=== PATIENT | female | born 1990 | race Two or more races ===

== ENCOUNTER 2017-03-01 00:41 | Emergency (ER) | payer MEDICAID ==
[2017-03-01 01:46] VITALS: BP 105/61
== END 2017-03-01 01:46 | disposition left against medical advice (07) ==
LOC: ER 00:41
DX: Z53.21 Procedure and treatment not carried out due to patient leaving prior to being seen by health care provider (principal)

== ENCOUNTER 2017-10-24 11:00 | Inpatient (IN) | payer SELFPAY ==
--- NOTE | 2017-10-24 11:25 | ER Document Report ---
ED Psych Disorder / Suicide - General Stated Complaint: IVC W/PAPERS Time Seen by Provider: 10/24/17 11:18 Information source: Patient Notes: 27-year-old female with self disclose history of bipolar disorder and possibly ulcerative colitis who presents today after being released from [facility] today with IVC paperwork secondary to not eating for week. Patient is on no medications. Patient supposedly states that she has not eaten or drank for week because of her ulcerative colitis. She states she was told around 2 years ago that she had this diagnosis but was told that she needed no medications. She did not follow-up. Patient states she also was told that she has bipolar disorder and was supposed to be on medications but has not followed up. Patient states she is nauseous but denies actually any abdominal pain. She denies any vomiting or diarrhea. She denies any fevers or dysuria. Patient states she has a history of cutting in the past. TRAVEL OUTSIDE OF THE [place] IN LAST 30 DAYS: No - HPI Patient complains to provider of: Other - See above Quality of pain: Other - See above Severity: Mild Pain Level: Denies Suicide Risk Factors: Other - See above Normal mood: No Associated symptoms: Tearful, Other - Flat affect - Related Data Allergies/Adverse Reactions: No Known Drug Allergies Allergy (Verified 10/24/17 11:59) Past Medical History - General Information source: Patient - Social History Smoking Status: Unknown if Ever Smoked Cigarette use (# per day): No Chew tobacco use (# tins/day): No Smoking Education Provided: No Frequency of alcohol use: None Family History: Arthritis, CAD, Hyperlipidemia, Hypertension, Malignancy, Thyroid Disfunction - Past Medical History Cardiac Medical History: Denies: Hx Coronary Artery Disease, Hx Heart Attack, Hx Hypertension Pulmonary Medical History: Denies: Hx Asthma, Hx Bronchitis, Hx COPD, Hx Pneumonia Neurological Medical History: Reports: Hx Migraine. Denies: Hx Cerebrovascular Accident, Hx Seizures GI Medical History: Reports: Hx Crohn's Disease - Not sure if it's Crohn's or ulcerative colitis, Hx Ulcerative Colitis Musculoskeltal Medical History: Denies Hx Arthritis, Reports Hx Musculoskeletal Trauma - Immunizations Immunizations up to date: Yes Hx Diphtheria, Pertussis, Tetanus Vaccination: Yes Review of Systems - Review of Systems Constitutional: denies: Fever EENT: denies: Eye discharge, Nose discharge Cardiovascular: denies: Chest pain, Palpitations Respiratory: denies: Short of breath Gastrointestinal: denies: Vomiting Genitourinary: denies: Dysuria Musculoskeletal: denies: Leg swelling Skin: Other - no hives. denies: Rash Neurological/Psychological: Other - no slurred speech -: Yes All other systems reviewed and negative Physical Exam - Vital signs Vitals: Temp Pulse Resp BP Pulse Ox 97.7 F 105 H 12 113/79 98 10/24/17 11:35 10/24/17 11:35 10/24/17 11:35 10/24/17 11:35 10/24/17 11:35 Interpretation: Normal Notes: Reviewed vital signs and nursing note as charted by RN. CONSTITUTIONAL: Alert and oriented and responds appropriately to questions. Thin but not cachectic HEAD: Normocephalic; atraumatic EYES: Sclerae non-icteric ENT: Normal nose; no rhinorrhea; moist mucous membranes NECK: Supple without meningismus; non-tender CARD: Regular rate and rhythm; no murmurs RESP: Normal chest excursion without splinting or tachypnea; breath sounds clear and equal bilaterally ABD/GI: Normal bowel sounds; non-distended; soft, non-tender BACK: The back appears normal and is non-tender to palpation EXT: Normal ROM in all joints; non-tender to palpation; no edema SKIN: No acute lesions noted NEURO: Moves all extremities equally; Motor and sensory function intact PSYCH: Tearful with flat affect Course - Re-evaluation Re-evalutation: 10/24/17 11:24 Given the history, physical, psychiatry history, we will obtain basic labs, psychiatry profile, liver panel and lipase, and reassess the abdomen. Patient currently has no tenderness to deep palpation in all 4 quadrants of the abdomen. The patient has had no fevers, vomiting, or diarrhea. 10/24/17 11:28 Heart rate 98, normal sinus rhythm, normal axis, no obvious ST elevation or depression 10/24/17 14:10 Labs as recorded. Large ketones in the urine. Second liter fluid has been given. Liver panel and lipase is recorded. Normal white blood cell count. Patient still has no tenderness to deep palpation of all 4 quadrants of the abdomen. 10/24/17 18:02 Pt still is refusing to eat. I have provided fluids. Psychology team is seeing evaluating the patient. Patient will not be rescinded from IVC paperwork until at least the patient is able to eat. I have provided megace. Pt still has no ttp of the abdomen. - Vital Signs Vital signs: Temp Pulse Resp BP Pulse Ox 97.7 F 105 H 12 113/79 98 10/24/17 11:35 10/24/17 11:35 10/24/17 11:35 10/24/17 11:35 10/24/17 11:35 - Laboratory Result Diagrams: 10/24/17 11:37 10/24/17 11:37 Laboratory results interpreted by me: 10/24/17 10/24/17 10/24/17 11:37 11:37 12:12 Plt Count 593 H Lymphocytes % 12.2 L Monocytes % 13.8 H Eosinophils % 10.6 H Absolute Eosinophils 1.1 H Carbon Dioxide 16 L Anion Gap 21 H BUN 5 L Calcium 10.5 H Urine Protein 100 H Urine Ketones 80 H Urine Blood SMALL H Urine Bilirubin SMALL H Urine Urobilinogen 2.0 H Salicylates < 1.0 L Acetaminophen < 10 L Discharge - Discharge Clinical Impression: Eating disorder Major depression Qualifiers: Major depression recurrence: single episode Active/Remission status: currently active Major depression episode severity: severe Psychotic features: without psychotic features Qualified Code(s): F32.2 - Major depressive disorder, single episode, severe without psychotic features Condition: Fair Disposition: PSYCH HOSP/UNIT
[2017-10-24] MEDS ORDERED: NORMAL SALINE 1000 ML 1,000 ML IV ONE ×2 (11:29→14:09)
[2017-10-24 11:59] LABS: ABSOLUTE EOSINOPHILS # (AUTO) 1.1 10^3/uL (0.0-0.6); ABSOLUTE LYMPHOCYTES (AUTO) 1.2 10^3/uL (0.5-4.7); ABSOLUTE MONOCYTES (AUTO) 1.4 10^3/uL (0.1-1.4); ABSOLUTE NEUT (AUTO) 6.4 10^3/uL (1.7-8.2); BASOPHILS % (AUTO) 0.2 % (0-2); EOSINOPHILS % (AUTO) 10.6 % (0-6); HEMATOCRIT 39.6 % (36.0-47.0); HEMOGLOBIN 13.1 g/dL (12.0-15.5); LYMPHOCYTES % (AUTO) 12.2 % (13-45); MEAN CORPUSCULAR HEMOGLOBIN 29.1 pg (27.0-33.4); MEAN CORPUSCULAR HGB CONC 33.2 g/dL (32.0-36.0); MEAN CORPUSCULAR VOLUME 88 fl (80-97); MONOCYTES % (AUTO) 13.8 % (3-13); PLATELET COUNT 593 10^3/uL (150-450); RED BLOOD COUNT 4.52 10^6/uL (3.72-5.28); RED CELL DISTRIBUTION WIDTH 13.6 % (11.5-14.0); SEGMENTED NEUTROPHILS % (AUTO) 63.2 % (42-78); TOTAL CELLS COUNTED % (AUTO) 100 %; WHITE BLOOD COUNT 10.2 10^3/uL (4.0-10.5)
[2017-10-24 12:18] LABS: ALANINE AMINOTRANSFERASE 29 U/L (9-52); ALBUMIN 4.6 g/dL (3.5-5.0); ALKALINE PHOSPHATASE 82 U/L (38-126); ASPARTATE AMINO TRANSFERASE 15 U/L (14-36); BILIRUBIN,DIRECT 0.2 mg/dL (0.0-0.4); BILIRUBIN,TOTAL 0.4 mg/dL (0.2-1.3); BLOOD UREA NITROGEN 5 mg/dL (7-20); CALCIUM 10.5 mg/dL (8.4-10.2); CARBON DIOXIDE 16 mmol/L (22-30); CHLORIDE 105 mmol/L (98-107); GLUCOSE 84 mg/dL (75-110); LIPASE 41.8 U/L (23-300); POTASSIUM 4.4 mmol/L (3.6-5.0); SODIUM 142.4 mmol/L (137-145); TOTAL PROTEIN 7.7 g/dL (6.3-8.2)
[2017-10-24 12:19] LABS: ACETAMINOPHEN < 10 ug/mL (10-30); ALCOHOL < 10 mg/dL (NONE DETECTED); SALICYLATE < 1.0 mg/dL (2.0-20.0)
[2017-10-24 12:20] LABS: ANION GAP 21 (5-19)
[2017-10-24 12:32] LABS: APPEARANCE,URINE SLIGHTLY-CLOUDY; BILIRUBIN,URINE SMALL (NEGATIVE); COLOR,URINE YELLOW; GLUCOSE, URINE NEGATIVE (NEGATIVE); KETONES,URINE 80 mg/dL (NEGATIVE); LEUKOCYTE ESTERASE,URINE NEGATIVE (NEGATIVE); NITRITE,URINE NEGATIVE (NEGATIVE); PROTEIN,URINE 100 mg/dL (NEGATIVE); URINE SPECIFIC GRAVITY 1.031
[2017-10-24 12:45] LABS: URINE AMPHETAMINES SCREEN NEGATIVE; URINE BARBITURATES SCREEN NEGATIVE; URINE BENZODIAZEPINES SCREEN NEGATIVE; URINE COCAINE SCREEN NEGATIVE; URINE MARIJUANA (THC) SCREEN NEGATIVE; URINE METHADONE SCREEN NEGATIVE; URINE PHENCYCLIDINE SCREEN NEGATIVE
--- NOTE | 2017-10-24 16:27 | PSYCHOLOGICAL NOTE ---
Psych Note - Psych Note Psych Note: Reason for Consult: IVC Consent Permissions: patient refused Pt to ED vo[facility] on IVC papaers, [facility] states [facility] was [facility] until prior to coming here, they reports pt has had decreased appitite x 2 weeks and is on suicide precaustion with hx of psych d/o, but unknown what hx, pt quiet and appears sad on initial. Patient disclosed that she has not been eating because it "hurts and to drink or eat... It is not constant and only seems to happen when I am eating or drinking." Patient disclosed that she has also been having difficulty with having to go to the bathroom frequently. Patient denies suicidal and homicidal ideation stating that she is only not been eating or drinking because it hurts her stomach. Patient disclosed that she had an appointment with [facility] but she missed her appointment so is unsure if she still has them as a provider. Patient continued disclosed that she has a diagnosis of "bipolar depression" but denies taking any medications. Patient states she does have family in the area became agitated when asked about contact information "why would you need to talk to them." Patient is alert and orientated to person, place, time and circumstance. Mood is dysphoric with flat affect. Patient denies suicidal and homicidal ideation. Delusions are absent and behaviors congruent with intact reality based presentation i.e. organized, linear, rational thinking. Eye contact was fair. Conversational speech was low very difficult to hear. Intellectual abilities appear to be within the average range. Attention and concentration are fair. Insight, judgment, impulse control are fair.
--- NOTE | 2017-10-24 17:56 | EKG REPORT ---
SEVERITY:- ABNORMAL ECG - SINUS RHYTHM RIGHT ATRIAL ABNORMALITY [facility] : Confirmed by: Fletcher Santillan MD 24-Oct-2017 17:56:00
[2017-10-24] MEDS ORDERED: OLANZAPINE 5 MG TABLET PO ONE (18:03)
[2017-10-24] MEDS ORDERED: MEGESTROL ACETATE 20 MG TABLET PO ONE (18:03)
--- NOTE | 2017-10-25 09:28 | ER Document Report ---
Doctor's Note Notes: 10/25/17 09:26 27-year-old female who presented yesterday with IVC paperwork from the residential secondary to not eating or drinking for week. She had stated it was secondary to intermittent abdominal discomfort. Patient supposedly has psychiatric history but is unsure what medication she was supposed to be taking. Vital signs are stable. Labs as recorded. Patient is still refusing to eat. Patient still has no tenderness on focal examination. We will obtain a CT scan of the abdomen and pelvis with IV contrast and reassess the patient's eating with psychology evaluation. 10/25/17 11:53 Patient still has refused to eat or drink. She still states it is secondary to pain. Labs as recorded. The Megace was unsuccessful. I did order a CT scan of the abdomen and pelvis which did show colitis of the large intestine. This could be consistent with the patient's self-reported history of possibly being diagnosed with ulcerative colitis. Patient will be admitted to the hospitalist for further evaluation, antibiotics, and I have provided a dose of steroids.
--- NOTE | 2017-10-25 10:11 | RADIOLOGY REPORT (SQ) ---
EXAM DESCRIPTION: CT ABD/PELVIS WITH IV ONLY COMPLETED DATE/TIME: 10/25/2017 9:58 am REASON FOR STUDY: not eating; abdominal pain COMPARISON: None. TECHNIQUE: CT scan of the abdomen and pelvis performed using helical scanning technique with dynamic intravenous contrast injection. No oral contrast. Images reviewed with lung, soft tissue, and bone windows. Reconstructed coronal and sagittal MPR images reviewed. Delayed images for evaluation of the urinary system also acquired. All images stored on PACS. All CT scanners at this facility use dose modulation, iterative reconstruction, and/or weight based d osing when appropriate to reduce radiation dose to as low as reasonably achievable (ALARA). [facility]: Dose Right [facility]: CareDose [facility]: Dose Right [facility]: Teradose 4D [facility]: [facility] CONTRAST TYPE AND DOSE: contrast/concentration: Isovue 370.00 mg/ml; Total Contrast Delivered: 54.0 ml; Total Saline Delivered: 65.0 ml RENAL FUNCTION: None required. The patient is less than 50 years old. RADIATION DOSE: CT Rad equipment meets quality standard of care and radiation dose reduction techniq ues were employed. CTDIvol: 4.8 mGy. DLP: 498 mGy-cm.. LIMITATIONS: None. FINDINGS: LOWER CHEST: No significant findings. No nodules or infiltrates. LIVER: Normal size. No masses. No dilated ducts. SPLEEN: Normal size. No focal lesions. PANCREAS: No masses. No significant calcifications. No adjacent inflammation or peripancreatic fluid collections. Pancreatic duct not dilated. GALLBLADDER: No identified stones by CT criteria. No inflammatory changes to suggest cholecystitis. ADRENAL GLANDS: No significant masses or asymmetry. RIGHT KIDNEY AND URETER: No solid masses. No significant calcifications. No hydronephrosis or hyd roureter. LEFT KIDNEY AND URETER: No solid masses. No significant calcifications. No hydronephrosis or hydr oureter. AORTA AND VESSELS: No aneurysm. No dissection. Renal arteries, SMA, celiac without stenosis. RETROPERITONEUM: No retroperitoneal adenopathy, hemorrhage or masses. BOWEL AND PERITONEAL CAVITY: Diffuse thickening of the colonic mucosa throughout. No pericolonic fat stranding. Most likely colitis. APPENDIX: Not visualized. PELVIS: No mass. No free fluid. Normal bladder. ABDOMINAL WALL: No masses. No hernias. BONES: No significant or acute findings. OTHER: No other significant finding. IMPRESSION: Generalized colitis. TECHNICAL DOCUMENTATION: JOB ID: [id number] Quality ID # [id number]: Final reports with documentation of one or more dose reduction techniques (e.g., Au tomated exposure control, adjustment of the mA and/or kV according to patient size, use of iterative reconstruction technique) 2010 [employer]- All Rights Reserved Reading location - IP/workstation name: [email or web address]
[2017-10-25] MEDS ORDERED: METHYLPREDNISOLONE INJ 125 MG/2 ML SDV IV ONE (11:51)
[2017-10-25] MEDS ORDERED: ACETAMINOPHEN 325 MG TABLET PO PRN (17:32)
[2017-10-25] MEDS ORDERED: POTASSI CL 20 MEQ/D5NS 1L 20 MEQ/1,000 ML RTUINJ IV PRN (17:32)
--- NOTE | 2017-10-25 17:54 | PDOC H&P ---
History of Present Illness Admission Date/PCP: 10/25/17 11:58 Patient complains of: Anorexia abdominal pain History of Present Illness: PEPE POLO is a 27 year old female who was brought from long-term where she has been incarcerated It with a chief complaint of anorexia and abdominal pain Patient has refused to eat for several days and acute extremely withdrawn She does have a past history of ulcerative colitis for which she was treated with Remicade She cannot really tell us how long ago; she complains of persistent diarrhea, no fever no chills She looks extremely thin but does not know if she has lost weight History very difficult to obtain as she is very withdrawn Past Medical History Cardiac Medical History: Denies: Coronary Artery Disease, Myocardial Infarction, Hypertension Pulmonary Medical History: Denies: Asthma, Bronchitis, Chronic Obstructive Pulmonary Disease (COPD), Pneumonia Neurological Medical History: Reports: Migraine Denies: Seizures GI Medical History: Reports: Crohn's Disease - Not sure if it's Crohn's or ulcerative colitis, Ulcerative Colitis Musculoskeltal Medical History: Denies: Arthritis Psychiatric Medical History: Reports: Depression Hematology: Denies: Anemia Social History Information Source: Patient Smoking Status: Never Smoker Frequency of Alcohol Use: None Hx Recreational Drug Use: No - Advance Directive Resuscitation Status: Full Code Family History Family History: Arthritis, CAD, Hyperlipidemia, Hypertension, Malignancy, Thyroid Disfunction Parental Family History Reviewed: Yes Children Family History Reviewed: Yes Sibling(s) Family History Reviewed.: Yes Medication/Allergy Home Medications: Remicade 260mg 07/10/15 Oxycodone HCl/Acetaminophen [Percocet 5-325 mg Tablet] 1 tab PO Q4H PRN #10 tablet 08/08/15 Prednisone 10 mg PO ASDIR #42 tablet 08/08/15 Methocarbamol [Robaxin 500 mg Tablet] 500 mg PO TIDP PRN #10 tablet 10/18/15 Prednisone 10 mg PO ASDIR #42 tablet 11/06/15 Allergies/Adverse Reactions: No Known Drug Allergies Allergy (Verified 10/24/17 11:59) Review of Systems Constitutional: PRESENT: anorexia, weakness, weight loss. ABSENT: chills, night sweats Eyes: ABSENT: visual disturbances Ears: ABSENT: hearing changes Cardiovascular: ABSENT: chest pain, dyspnea on exertion, edema, orthropnea, palpitations Respiratory: ABSENT: cough, hemoptysis Gastrointestinal: PRESENT: abdominal pain, diarrhea, nausea Musculoskeletal: ABSENT: joint swelling Neurological: ABSENT: abnormal gait, abnormal speech, confusion, dizziness, focal weakness, syncope Psychiatric: ABSENT: anxiety, depression, homidical ideation, suicidal ideation Endocrine: ABSENT: cold intolerance, heat intolerance, polydipsia, polyuria Hematologic/Lymphatic: ABSENT: easy bleeding, easy bruising Physical Exam Vital Signs: Temp Pulse Resp BP Pulse Ox 98.5 F 76 12 91/61 L 98 10/25/17 15:19 10/25/17 15:19 10/25/17 15:19 10/25/17 15:19 10/25/17 15:19 Intake & Output 10/24/17 10/25/17 10/26/17 00:59 00:59 00:59 Weight 34.3 kg General appearance: PRESENT: mild distress, thin Head exam: PRESENT: atraumatic, normocephalic Eye exam: PRESENT: conjunctiva pink, EOMI, PERRLA. ABSENT: scleral icterus Ear exam: PRESENT: normal external ear exam Mouth exam: PRESENT: moist, tongue midline Neck exam: ABSENT: carotid bruit, JVD, lymphadenopathy, thyromegaly Respiratory exam: PRESENT: clear to auscultation aba. ABSENT: rales, rhonchi, wheezes Cardiovascular exam: PRESENT: RRR. ABSENT: diastolic murmur, rubs, systolic murmur Pulses: PRESENT: normal dorsalis pedis pul GI/Abdominal exam: PRESENT: soft, tenderness. ABSENT: guarding Rectal exam: PRESENT: deferred Extremities exam: PRESENT: full ROM. ABSENT: calf tenderness, clubbing, pedal edema Musculoskeletal exam: PRESENT: ambulatory, full ROM Neurological exam: PRESENT: alert, CN II-XII grossly intact Psychiatric exam: PRESENT: depressed, flat affect Skin exam: PRESENT: dry, intact, warm. ABSENT: cyanosis, rash Results Impressions: Abdomen/Pelvis CT 10/25/17 09:27 IMPRESSION: Generalized colitis. Assessment & Plan - Diagnosis (1) Colitis Is this a current diagnosis for this admission?: Yes Plan: CAT scan abdomen and pelvis shows diffuse colitis Patient has been treated for ulcerative colitis in the past We will initiate mesalamine, treated with IV Cipro and Flagyl We will continue steroids p.o. at 60 mg daily We will obtain sed rate and CRP A GI consult may be indicated if available Dr.Ibegbu has treated her in the past We will try to obtain records (2) Eating disorder Is this a current diagnosis for this admission?: Yes Plan: Patient may have chronic anorexia But I do believe that the anorexia is likely secondary to the colitis and that she may improve clinically with treatment Continue Megace (3) Major depression Qualifiers: Major depression recurrence: single episode Active/Remission status: currently active Major depression episode severity: severe Psychotic features: without psychotic features Qualified Code(s): F32.2 - Major depressive disorder, single episode, severe without psychotic features Is this a current diagnosis for this admission?: Yes Plan: Psych consult is pending - Time Time Spent with patient: Admit the patient to medical unit Time Spent: 50 to 70 Minutes - Inpatient Certification Based on my medical assessment, after consideration of the patient's comorbidities, presenting symptoms, or acuity I expect that the services needed warrant INPATIENT care.: Yes I certify that my determination is in accordance with my understanding of Medicare's requirements for reasonable and necessary INPATIENT services [42 CFR 412.3e].: Yes Medical Necessity: Need For IV Fluids, Need for IV Antibiotics, Risk of Complication if Not Cared For in Hospital
[2017-10-25] MEDS: METRONIDAZOLE 500 MG/NS RTU 100 ML IV SCH (19:19)
[2017-10-25] MEDS: PANTOPRAZOLE SODIUM 40 MG VIAL IV SCH (19:20)
[2017-10-25] MEDS ORDERED: MESALAMINE 400 MG CAPSULE.DR PO ONE (19:51)
[2017-10-25] MEDS ORDERED: CIPROFLOXACIN 400 MG/D5W RTU 400 MG/200 ML RTUPB IV ONE (19:51)
[2017-10-25] MEDS: MESALAMINE 400 MG CAPSULE.DR PO SCH (20:08)
[2017-10-25] MEDS: RINGERS SOLUTION,LACTATED 1,000 ML IV PRN (20:08)
[2017-10-25] MEDS: CIPROFLOXACIN 400 MG/D5W RTU 400 MG/200 ML RTUPB IV SCH (22:41)
[2017-10-26] MEDS: METRONIDAZOLE 500 MG/NS RTU 100 ML IV SCH ×5 (01:42→23:41)
[2017-10-26] MEDS: PANTOPRAZOLE SODIUM 40 MG VIAL IV SCH ×2 (05:58→18:02)
[2017-10-26 07:48] LABS: HEMATOCRIT 33.5 % (36.0-47.0); HEMOGLOBIN 11.3 g/dL (12.0-15.5); MEAN CORPUSCULAR HEMOGLOBIN 28.8 pg (27.0-33.4); MEAN CORPUSCULAR HGB CONC 33.6 g/dL (32.0-36.0); MEAN CORPUSCULAR VOLUME 86 fl (80-97); PLATELET COUNT 525 10^3/uL (150-450); RED BLOOD COUNT 3.91 10^6/uL (3.72-5.28); RED CELL DISTRIBUTION WIDTH 13.5 % (11.5-14.0); WHITE BLOOD COUNT 10.3 10^3/uL (4.0-10.5)
[2017-10-26] MEDS: CIPROFLOXACIN 400 MG/D5W RTU 400 MG/200 ML RTUPB IV SCH ×2 (07:51→18:03)
[2017-10-26 08:09] LABS: ALANINE AMINOTRANSFERASE 29 U/L (9-52); ALBUMIN 3.4 g/dL (3.5-5.0); ALKALINE PHOSPHATASE 53 U/L (38-126); ANION GAP 12 (5-19); ASPARTATE AMINO TRANSFERASE 12 U/L (14-36); BILIRUBIN,DIRECT 0.3 mg/dL (0.0-0.4); BILIRUBIN,TOTAL 0.3 mg/dL (0.2-1.3); BLOOD UREA NITROGEN 3 mg/dL (7-20); C-REACTIVE PROTEIN 14.5 mg/L (<10.0); CALCIUM 9.4 mg/dL (8.4-10.2); CARBON DIOXIDE 22 mmol/L (22-30); CHLORIDE 105 mmol/L (98-107); GLUCOSE 88 mg/dL (75-110); POTASSIUM 4.1 mmol/L (3.6-5.0); SODIUM 138.5 mmol/L (137-145); TOTAL PROTEIN 6.4 g/dL (6.3-8.2)
[2017-10-26 08:19] LABS: FREE T4 (FREE THYROXINE) 1.47 ng/dL (0.78-2.19)
[2017-10-26 08:32] LABS: THYROID STIMULATING HORMONE 0.05 uIU/mL (0.47-4.68)
[2017-10-26 08:45] LABS: ERYTHROCYTE SEDIMENTATION RATE 29 mm/hr (0-20)
[2017-10-26] MEDS: PREDNISONE 20 MG TABLET PO SCH (10:52)
[2017-10-26] MEDS: MESALAMINE 400 MG CAPSULE.DR PO SCH ×3 (10:52→18:03)
[2017-10-26] MEDS: ENOXAPARIN SODIUM INJ 30 MG/0.3 ML DISP.SYRIN SUBCUT SCH (10:58)
--- NOTE | 2017-10-26 20:08 | PDOC PROGRESS REPORT ---
Subjective Progress Note for:: 10/26/17 Subjective:: 27-year-old woman with history of ulcerative colitis admitted with abdominal pain associated with nausea and diarrhea. Seen and examined this morning she reports a small improvement from a abdominal pain and continued to have diarrhea. She is on a clear liquid diet which she is tolerated. She is on a one-to-one watch. Reason For Visit: ULCERATIVE COLITIS ACUTE EXACERBATION ANOREXIA Physical Exam Vital Signs: Temp Pulse Resp BP Pulse Ox 98.4 F 81 14 99/49 L 99 10/26/17 16:17 10/26/17 16:17 10/26/17 16:17 10/26/17 16:17 10/26/17 16:17 Intake & Output 10/25/17 10/26/17 10/27/17 06:59 06:59 06:59 Intake Total 1201 1280 Balance 1201 1280 Weight 34.5 kg General appearance: PRESENT: cooperative, thin Head exam: PRESENT: atraumatic, normocephalic Eye exam: PRESENT: EOMI Mouth exam: PRESENT: moist, neck supple Neck exam: PRESENT: full ROM Respiratory exam: PRESENT: clear to auscultation aba. ABSENT: accessory muscle use GI/Abdominal exam: PRESENT: normal bowel sounds, soft Rectal exam: PRESENT: deferred Extremities exam: PRESENT: full ROM Musculoskeletal exam: PRESENT: ambulatory, full ROM Neurological exam: PRESENT: alert, altered, oriented to time, oriented to situation Psychiatric exam: PRESENT: flat affect Skin exam: PRESENT: dry Results Laboratory Results: 10/26/17 07:08 10/26/17 07:08 10/26/17 10/26/17 10/26/17 07:08 07:08 07:08 WBC 10.3 RBC 3.91 Hgb 11.3 L Hct 33.5 L MCV 86 MCH 28.8 MCHC 33.6 RDW 13.5 Plt Count 525 H Sodium 138.5 Potassium 4.1 Chloride 105 Carbon Dioxide 22 Anion Gap 12 BUN 3 L Creatinine 0.47 L Est GFR ( Amer) > 60 Est GFR (Non-Af Amer) > 60 Glucose 88 Calcium 9.4 Total Bilirubin 0.3 AST 12 L ALT 29 Alkaline Phosphatase 53 C-Reactive Protein 14.5 H Total Protein 6.4 Albumin 3.4 L TSH 0.05 L Free T4 1.47 Impressions: Abdomen/Pelvis CT 10/25/17 09:27 IMPRESSION: Generalized colitis. Assessment & Plan - Diagnosis (1) Colitis Is this a current diagnosis for this admission?: Yes Plan: She does have a history of ulcerative colitis. This is likely a flare. Continue current IV antibiotic and consult GI. Remains on clear liquid diet. (2) Eating disorder Is this a current diagnosis for this admission?: Yes Plan: Continue Megace and will get clinical trial manager consult (3) Major depression Qualifiers: Major depression recurrence: single episode Active/Remission status: currently active Major depression episode severity: severe Psychotic features: without psychotic features Qualified Code(s): F32.2 - Major depressive disorder, single episode, severe without psychotic features Is this a current diagnosis for this admission?: Yes Plan: On 1:1 watch and psych consulted (4) DVT prophylaxis Is this a current diagnosis for this admission?: Yes Plan: Ambulatory - Time Time Spent with patient: 15-24 minutes
[2017-10-26] MEDS: RINGERS SOLUTION,LACTATED 1,000 ML IV PRN (23:41)
[2017-10-27] MEDS: METRONIDAZOLE 500 MG/NS RTU 100 ML IV SCH ×3 (05:49→18:45)
[2017-10-27] MEDS: CIPROFLOXACIN 400 MG/D5W RTU 400 MG/200 ML RTUPB IV SCH ×2 (05:49→18:45)
[2017-10-27] MEDS: PANTOPRAZOLE SODIUM 40 MG VIAL IV SCH ×2 (05:49→18:45)
[2017-10-27] MEDS: MESALAMINE 400 MG CAPSULE.DR PO SCH ×3 (12:31→18:45)
[2017-10-27] MEDS: ENOXAPARIN SODIUM INJ 30 MG/0.3 ML DISP.SYRIN SUBCUT SCH (12:31)
[2017-10-27] MEDS: PREDNISONE 20 MG TABLET PO SCH (12:31)
--- NOTE | 2017-10-27 13:59 | PSYCHOLOGICAL NOTE ---
Psych Note - Psych Note Psych Note: Reason for consult; patient not eating Contact permission; none Patient is a 27-year-old female. Patient reports she is still not eating because her stomach hurts but acknowledges that it is also due to other factors. Patient stated it is because "everything". Patient reports she does not want to talk about it and does not want therapy. Patient reports she will eat when she feels better and is getting the treatment she needs in the hospital. Patient reports she has no one in life no family no friends to help her. Patient reports all she has is herself to rely on. Patient reports things could get better but she does not see them getting better. She reports that eventually she will eat. Clinician observed as patient was talking with clinician patient began to drink her broth. Clinician observed patient has a brighter affect is smiling and laughing with clinician. Patient reports maybe she will feel better later. Patient observed patient prefers to ask questions and find out information about the clinician. Clinician observed patient is reserved. Patient reports she does not want to give contact permission to anyone. She reports she does not feel like it is necessary. Medication recommendations made by psychiatric provider Dr. Bright include: none Diagnosis 307.50 ( F50.9)unspecified eating or eating disorder Impression/ plan: Patient is psychiatrically cleared. Recommendation for patient to follow-up with outpatient therapy upon discharge from the hospital. Consulted with Dr. Sykes regarding the management and care of patient.
--- NOTE | 2017-10-27 16:22 | PDOC PROGRESS REPORT ---
Subjective Progress Note for:: 10/27/17 Subjective:: 27-year-old woman with history of ulcerative colitis used to be on Remicade admitted with abdominal pain associated with nausea and diarrhea. Seen and examined this am and reports no abdominal pain and still having increasing stooling and loose. She has been on clear liquid diet which she is tolerated. She is on a one-to-one watch. Reason For Visit: ULCERATIVE COLITIS ACUTE EXACERBATION ANOREXIA Physical Exam Vital Signs: Temp Pulse Resp BP Pulse Ox 98.2 F 73 16 92/56 L 100 10/27/17 11:34 10/27/17 11:34 10/27/17 11:34 10/27/17 11:34 10/27/17 11:34 Intake & Output 10/26/17 10/27/17 10/28/17 06:59 06:59 06:59 Intake Total 1201 1698 Balance 1201 1698 Weight 34.5 kg 34.5 kg General appearance: PRESENT: thin, other - ill looking Head exam: PRESENT: atraumatic, normocephalic Mouth exam: PRESENT: moist Neck exam: PRESENT: full ROM Respiratory exam: PRESENT: clear to auscultation aba, unlabored. ABSENT: accessory muscle use Cardiovascular exam: PRESENT: RRR GI/Abdominal exam: PRESENT: normal bowel sounds, soft, tenderness Rectal exam: PRESENT: deferred Extremities exam: PRESENT: full ROM Musculoskeletal exam: PRESENT: full ROM Neurological exam: PRESENT: alert, oriented to person, oriented to time, oriented to situation, reflexes normal Psychiatric exam: PRESENT: depressed, flat affect Skin exam: PRESENT: dry, warm Results Laboratory Results: 10/26/17 07:08 10/26/17 07:08 10/25/17 22:30 Clean Catch Midstream Urine Culture - Final Lactobacillus (Vaginal Cele) Impressions: Abdomen/Pelvis CT 10/25/17 09:27 IMPRESSION: Generalized colitis. Assessment & Plan - Diagnosis (1) Colitis Is this a current diagnosis for this admission?: Yes Plan: She does have a history of ulcerative colitis. This is likely a flare. Continue current IV antibiotic and consult GI. On clear liquid diet and advance to full. C. difficile negative. (2) Eating disorder Is this a current diagnosis for this admission?: Yes Plan: Continue Megace Pipe Organ Tuner And Repairer consulted (3) Major depression Qualifiers: Major depression recurrence: single episode Active/Remission status: currently active Major depression episode severity: severe Psychotic features: without psychotic features Qualified Code(s): F32.2 - Major depressive disorder, single episode, severe without psychotic features Is this a current diagnosis for this admission?: Yes Plan: On 1:1 watch and seen by psych (4) Anemia Is this a current diagnosis for this admission?: Yes Plan: with precipitous drop Likely dilutional (5) DVT prophylaxis Is this a current diagnosis for this admission?: Yes Plan: Ambulatory - Time Time Spent with patient: 15-24 minutes
[2017-10-28] MEDS: METRONIDAZOLE 500 MG/NS RTU 100 ML IV SCH ×5 (00:26→23:27)
[2017-10-28] MEDS: PANTOPRAZOLE SODIUM 40 MG VIAL IV SCH (05:23)
[2017-10-28] MEDS: CIPROFLOXACIN 400 MG/D5W RTU 400 MG/200 ML RTUPB IV SCH ×2 (05:23→19:15)
[2017-10-28 07:12] LABS: ABSOLUTE MONOCYTES (AUTO) 1.4 10^3/uL (0.1-1.4); ABSOLUTE NEUT (AUTO) 8.6 10^3/uL (1.7-8.2); BASOPHILS % (AUTO) 0.2 % (0-2); EOSINOPHILS % (AUTO) 0.2 % (0-6); HEMATOCRIT 30.6 % (36.0-47.0); HEMOGLOBIN 10.2 g/dL (12.0-15.5); LYMPHOCYTES % (AUTO) 16.9 % (13-45); MEAN CORPUSCULAR HEMOGLOBIN 28.7 pg (27.0-33.4); MEAN CORPUSCULAR HGB CONC 33.5 g/dL (32.0-36.0); MEAN CORPUSCULAR VOLUME 86 fl (80-97); MONOCYTES % (AUTO) 11.4 % (3-13); PLATELET COUNT 446 10^3/uL (150-450); RED BLOOD COUNT 3.57 10^6/uL (3.72-5.28); RED CELL DISTRIBUTION WIDTH 13.8 % (11.5-14.0); SEGMENTED NEUTROPHILS % (AUTO) 71.3 % (42-78); TOTAL CELLS COUNTED % (AUTO) 100 %
--- NOTE | 2017-10-28 09:30 | PDOC CONSULTATION ---
Consultation Consult Date: 10/28/17 Attending physician:: LAMIN MURRAY Consult reason:: IBD, flare History of Present Illness Admission Date/PCP: 10/25/17 11:58 History of Present Illness: This is a patient who has seen Dr Murguia in the past she saw him in 2016, had remicaide infusion for IBD, ? possible Crohn's vs ulcerative colitis she is having diarrhea and loose stools her ESR is elevated patient is currently on 5ASA , no blood in her stools patient is also having significant depression states that it is painful to eat patient had biological therapy in the past ? if she is able to maintain this as an inpatient since currently has no insurance patient may be better served if she can be started and maintained on 5ASA plus steroid ( tapering dose) also it would be prudent to get immunological studies to see if she has difinitive Crohn's vs UC [facility] labs can be ordered thru the hospital labs for that Past Medical History Cardiac Medical History: Denies: Coronary Artery Disease, Myocardial Infarction, Hypertension Pulmonary Medical History: Denies: Asthma, Bronchitis, Chronic Obstructive Pulmonary Disease (COPD), Pneumonia Neurological Medical History: Reports: Migraine Denies: Seizures GI Medical History: Reports: Crohn's Disease - Not sure if it's Crohn's or ulcerative colitis, Ulcerative Colitis Musculoskeltal Medical History: Denies: Arthritis Psychiatric Medical History: Reports: Depression Hematology: Denies: Anemia Social History Smoking Status: Never Smoker Frequency of Alcohol Use: Occasional Hx Recreational Drug Use: No Hx Prescription Drug Abuse: No - Advance Directive Resuscitation Status: Full Code Family History Family History: Arthritis, CAD, Hyperlipidemia, Hypertension, Malignancy, Thyroid Disfunction Parental Family History Reviewed: Yes Children Family History Reviewed: Unknown Sibling(s) Family History Reviewed.: Unknown Medication/Allergy Home Medications: No Home Medications 10/26/17 Allergies/Adverse Reactions: No Known Drug Allergies Allergy (Verified 10/24/17 11:59) Review of Systems Constitutional: PRESENT: weight loss. ABSENT: fever(s), headache(s) Eyes: ABSENT: visual disturbances Ears: ABSENT: hearing changes Nose, Mouth, and Throat: ABSENT: mouth pain Cardiovascular: ABSENT: orthropnea, palpitations Respiratory: ABSENT: dyspnea, hemoptysis Gastrointestinal: PRESENT: diarrhea. ABSENT: hematemesis, hematochezia, melena Genitourinary: ABSENT: dysuria, hematuria Musculoskeletal: ABSENT: deformity, joint swelling Neurological: ABSENT: syncope, tingling, tremor(s), vertigo Endocrine: ABSENT: polydipsia, polyphagia, polyuria Hematologic/Lymphatic: ABSENT: easy bruising Physical Exam Vital Signs: Temp Pulse Resp BP Pulse Ox 98.6 F 54 L 16 89/59 L 100 10/27/17 23:44 10/27/17 23:44 10/27/17 23:44 10/27/17 23:44 10/27/17 23:44 Intake & Output 10/27/17 10/28/17 10/29/17 06:59 06:59 06:59 Intake Total 1698 1950 Balance 1698 1950 Weight 34.5 kg General appearance: PRESENT: thin Head exam: PRESENT: atraumatic, normocephalic Eye exam: PRESENT: EOMI, PERRLA. ABSENT: nystagmus, periorbital swelling, scleral icterus Mouth exam: PRESENT: moist, neck supple Throat exam: ABSENT: tonsillar exudate, tonsillogmegaly Neck exam: ABSENT: meningismus, tenderness, thyromegaly, tracheostomy Respiratory exam: PRESENT: symmetrical, unlabored. ABSENT: tachypnea, wheezes Cardiovascular exam: PRESENT: RRR, +S1, +S2 GI/Abdominal exam: PRESENT: soft. ABSENT: rebound, rigid, tenderness Musculoskeletal exam: PRESENT: full ROM Neurological exam: PRESENT: oriented to time, oriented to situation, CN II-XII grossly intact Psychiatric exam: PRESENT: flat affect Focused psych exam: ABSENT: restlessness Skin exam: PRESENT: normal color. ABSENT: mottled, pallor, petechiae, urticaria , vesicles Results Laboratory Results: 10/28/17 06:19 10/26/17 07:08 10/28/17 06:19 WBC 12.0 H RBC 3.57 L Hgb 10.2 L Hct 30.6 L MCV 86 MCH 28.7 MCHC 33.5 RDW 13.8 Plt Count 446 Seg Neutrophils % 71.3 Lymphocytes % 16.9 Monocytes % 11.4 Eosinophils % 0.2 Basophils % 0.2 Absolute Neutrophils 8.6 H Absolute Lymphocytes 2.0 Absolute Monocytes 1.4 Absolute Eosinophils 0.0 Absolute Basophils 0.0 10/25/17 22:30 Clean Catch Midstream Urine Culture - Final Lactobacillus (Vaginal Cele) Impressions: Abdomen/Pelvis CT 10/25/17 09:27 IMPRESSION: Generalized colitis. Assessment & Plan - Diagnosis (1) Inflammatory bowel disease Plan: will get immunological labs, to see if UC vs Crohn's disease, or antisaccrhomyces antibody may be useful as well UC is more bloody diarrhea however since she may not be able to get predatory animal exterminator biological therapy, maintainence on 5ASA and tapering steroids would be the best option social work and assist with these medications as they are more affordable however, she will need intervention to help her with her depression her Hgb is stable and so no urgent scope needs to be done patient can follow up with Dr Murguia as an outpatient since she is an ESTABLISHED patient of his check for C.Diff is not already done (2) Anemia Is this a current diagnosis for this admission?: Yes Plan: multiofactorial at this point likely also due to nutritional issues and ongoing issues with behavioral health issues follow up on H/H, start Iron therapy check B12 level since if has Crohn's will impair B12 absorption at the terminal ileum - Time Time Spent: 50 to 70 Minutes
[2017-10-28] MEDS: PREDNISONE 20 MG TABLET PO SCH (10:53)
[2017-10-28] MEDS: MESALAMINE 400 MG CAPSULE.DR PO SCH ×3 (10:54→17:04)
[2017-10-28] MEDS: ENOXAPARIN SODIUM INJ 30 MG/0.3 ML DISP.SYRIN SUBCUT SCH (12:15)
--- NOTE | 2017-10-28 15:43 | PDOC PROGRESS REPORT ---
Subjective Progress Note for:: 10/28/17 Subjective:: 27-year-old woman with history of ulcerative colitis used to be on Remicade admitted with abdominal pain associated with nausea and diarrhea. Seen and examined this am and reports intermittent abdominal pain. Shes refuses to eat as she said it hurts to swallow. She continued to report frequent stooling and small blood at times. Off 1:1 watch Reason For Visit: ULCERATIVE COLITIS ACUTE EXACERBATION ANOREXIA Physical Exam Vital Signs: Temp Pulse Resp BP Pulse Ox 98.0 F 51 L 12 100/57 L 100 10/28/17 08:53 10/28/17 08:53 10/28/17 08:53 10/28/17 08:53 10/28/17 08:53 Intake & Output 10/27/17 10/28/17 10/29/17 06:59 06:59 06:59 Intake Total 1698 1950 Balance 1698 1950 Weight 34.5 kg General appearance: PRESENT: no acute distress, thin Head exam: PRESENT: atraumatic, normocephalic Eye exam: PRESENT: EOMI Mouth exam: PRESENT: neck supple Neck exam: PRESENT: full ROM Respiratory exam: PRESENT: clear to auscultation aba, unlabored. ABSENT: accessory muscle use Cardiovascular exam: PRESENT: RRR GI/Abdominal exam: PRESENT: normal bowel sounds, soft, tenderness Rectal exam: PRESENT: deferred Extremities exam: PRESENT: full ROM Musculoskeletal exam: PRESENT: ambulatory Neurological exam: PRESENT: alert, oriented to person, oriented to time, oriented to situation Psychiatric exam: PRESENT: flat affect Skin exam: PRESENT: dry, warm Results Laboratory Results: 10/28/17 06:19 10/26/17 07:08 10/28/17 06:19 WBC 12.0 H RBC 3.57 L Hgb 10.2 L Hct 30.6 L MCV 86 MCH 28.7 MCHC 33.5 RDW 13.8 Plt Count 446 Seg Neutrophils % 71.3 Lymphocytes % 16.9 Monocytes % 11.4 Eosinophils % 0.2 Basophils % 0.2 Absolute Neutrophils 8.6 H Absolute Lymphocytes 2.0 Absolute Monocytes 1.4 Absolute Eosinophils 0.0 Absolute Basophils 0.0 10/25/17 22:30 Stool - Stool - Final 10/25/17 22:30 Stool - Stool Stool Culture - Final NO SALMONELLA, SHIGELLA, CAMPYLOBACTER, OR E.COLI 0157 RECOVERED. NEGATIVE FOR SHIGA TOXINS 1&2. 10/25/17 22:30 Clean Catch Midstream Urine Culture - Final Lactobacillus (Vaginal Cele) Impressions: Abdomen/Pelvis CT 10/25/17 09:27 IMPRESSION: Generalized colitis. Assessment & Plan - Diagnosis (1) Colitis Is this a current diagnosis for this admission?: Yes Plan: She does have a history of ulcerative colitis. This is likely a flare. Continue current IV antibiotic-on Cipro and Flagyl since admission-C. difficile negative She refused to eat since it hurts she says Continue prednisone and Mesalamine On a full liquid diet. (2) Eating disorder Is this a current diagnosis for this admission?: Yes Plan: Continue Megace She is severely depressed and has been taken off 1:1 watch (3) Major depression Qualifiers: Major depression recurrence: single episode Active/Remission status: currently active Major depression episode severity: severe Psychotic features: without psychotic features Qualified Code(s): F32.2 - Major depressive disorder, single episode, severe without psychotic features Is this a current diagnosis for this admission?: Yes Plan: She has been cleared by psych for discharge (4) Anemia Is this a current diagnosis for this admission?: Yes Plan: Hg noted with continued trend down Continue to monitor (5) DVT prophylaxis Is this a current diagnosis for this admission?: Yes Plan: Ambulatory - Time Time Spent with patient: 15-24 minutes
[2017-10-29] MEDS: METRONIDAZOLE 500 MG/NS RTU 100 ML IV SCH (05:30)
[2017-10-29] MEDS: CIPROFLOXACIN 400 MG/D5W RTU 400 MG/200 ML RTUPB IV SCH (05:30)
[2017-10-29] MEDS: PREDNISONE 20 MG TABLET PO SCH (10:00)
[2017-10-29] MEDS: ENOXAPARIN SODIUM INJ 30 MG/0.3 ML DISP.SYRIN SUBCUT SCH (10:03)
[2017-10-29] MEDS: MESALAMINE 400 MG CAPSULE.DR PO SCH ×3 (10:11→18:55)
[2017-10-29] MEDS: METRONIDAZOLE 500 MG TABLET PO SCH ×2 (15:09→21:05)
--- NOTE | 2017-10-29 21:32 | PDOC PROGRESS REPORT ---
Subjective Progress Note for:: 10/29/17 Subjective:: 27-year-old woman with history of ulcerative colitis used to be on Remicade admitted with abdominal pain associated with nausea and diarrhea. Seen and examined this afternoon and this is the first time I saw her sitting, she was trying to eat her soup and she asked for crackers. Reason For Visit: ULCERATIVE COLITIS ACUTE EXACERBATION ANOREXIA Physical Exam Vital Signs: Temp Pulse Resp BP Pulse Ox 97.7 F 96 14 90/56 L 99 10/29/17 16:00 10/29/17 16:00 10/29/17 16:00 10/29/17 16:00 10/29/17 16:00 Intake & Output 10/28/17 10/29/17 10/30/17 06:59 06:59 06:59 Intake Total 1949 1979 116 Output Total 2 Balance 1949 1977 1159 Weight 46.1 kg General appearance: PRESENT: no acute distress, thin Head exam: PRESENT: atraumatic, normocephalic Eye exam: PRESENT: EOMI Mouth exam: PRESENT: moist, neck supple Neck exam: PRESENT: full ROM Respiratory exam: PRESENT: clear to auscultation aba, unlabored Cardiovascular exam: PRESENT: RRR GI/Abdominal exam: PRESENT: normal bowel sounds, soft, tenderness Rectal exam: PRESENT: deferred Extremities exam: PRESENT: full ROM Musculoskeletal exam: PRESENT: ambulatory, full ROM Neurological exam: PRESENT: alert, oriented to person, oriented to time, oriented to situation Psychiatric exam: PRESENT: depressed Skin exam: PRESENT: dry, warm Results Laboratory Results: 10/28/17 06:19 10/26/17 07:08 Impressions: Abdomen/Pelvis CT 10/25/17 09:27 IMPRESSION: Generalized colitis. Assessment & Plan - Diagnosis (1) Colitis Is this a current diagnosis for this admission?: Yes Plan: She does have a history of ulcerative colitis. This is likely a flare. Change IV antibiotics to PO- Cipro and Flagyl. Continue prednisone and Mesalamine On a full liquid diet and advance as tolerated. Seen by GI (2) Eating disorder Is this a current diagnosis for this admission?: Yes Plan: Continue Megace She is severely depressed and has been taken off 1:1 watch (3) Major depression Qualifiers: Major depression recurrence: single episode Active/Remission status: currently active Major depression episode severity: severe Psychotic features: without psychotic features Qualified Code(s): F32.2 - Major depressive disorder, single episode, severe without psychotic features Is this a current diagnosis for this admission?: Yes Plan: She has been cleared by psych for discharge (4) Anemia Is this a current diagnosis for this admission?: Yes Plan: Hg noted with trend down Continue to monitor and CBC in am (5) Severe protein-calorie malnutrition Is this a current diagnosis for this admission?: Yes Plan: Encourage good PO intake Protein supplement (6) DVT prophylaxis Is this a current diagnosis for this admission?: Yes Plan: Ambulatory - Time Time Spent with patient: 15-24 minutes Medications reviewed and adjusted accordingly: Yes Within: within 24 hours - Inpatient Certification Medical Necessity: Other - Advance diet as tolerated
[2017-10-29 22:41] LABS: ABSOLUTE LYMPHOCYTES (AUTO) 1.2 10^3/uL (0.5-4.7); ABSOLUTE MONOCYTES (AUTO) 0.8 10^3/uL (0.1-1.4); ABSOLUTE NEUT (AUTO) 12.1 10^3/uL (1.7-8.2); BASOPHILS % (AUTO) 0.1 % (0-2); HEMATOCRIT 35.4 % (36.0-47.0); HEMOGLOBIN 11.4 g/dL (12.0-15.5); LYMPHOCYTES % (AUTO) 8.6 % (13-45); MEAN CORPUSCULAR HEMOGLOBIN 27.9 pg (27.0-33.4); MEAN CORPUSCULAR HGB CONC 32.4 g/dL (32.0-36.0); MEAN CORPUSCULAR VOLUME 86 fl (80-97); MONOCYTES % (AUTO) 5.7 % (3-13); PLATELET COUNT 528 10^3/uL (150-450); RED CELL DISTRIBUTION WIDTH 13.6 % (11.5-14.0); SEGMENTED NEUTROPHILS % (AUTO) 85.6 % (42-78); TOTAL CELLS COUNTED % (AUTO) 100 %; WHITE BLOOD COUNT 14.2 10^3/uL (4.0-10.5)
[2017-10-30] MEDS: METRONIDAZOLE 500 MG TABLET PO SCH ×3 (05:30→21:51)
[2017-10-30] MEDS: CIPROFLOXACIN HCL 500 MG TABLET PO SCH (05:30)
[2017-10-30 07:24] LABS: ANION GAP 9 (5-19); BLOOD UREA NITROGEN 4 mg/dL (7-20); CALCIUM 9.3 mg/dL (8.4-10.2); CARBON DIOXIDE 29 mmol/L (22-30); CHLORIDE 102 mmol/L (98-107); GLUCOSE 121 mg/dL (75-110); POTASSIUM 3.3 mmol/L (3.6-5.0); SODIUM 140.2 mmol/L (137-145)
[2017-10-30] MEDS ORDERED: POTASSIUM CHLORIDE 10 MEQ TABLET.SA PO ONE (09:00)
[2017-10-30] MEDS: ENOXAPARIN SODIUM INJ 30 MG/0.3 ML DISP.SYRIN SUBCUT SCH (09:31)
[2017-10-30] MEDS: MESALAMINE 400 MG CAPSULE.DR PO SCH ×3 (09:33→17:06)
[2017-10-30] MEDS: PREDNISONE 20 MG TABLET PO SCH (09:34)
--- NOTE | 2017-10-30 14:17 | PDOC PROGRESS REPORT ---
Subjective Progress Note for:: 10/30/17 Subjective:: The patient is a 27-year-old female who has a history of inflammatory bowel disease. She is currently admitted for inability to eat secondary to persistent nausea and vomiting with abdominal pain. I appreciate the recommendations from our GI service. The patient appears to have psychiatric overlay. She was seen by our psychiatric consultants who are concerned with a eating disorder. Reason For Visit: ULCERATIVE COLITIS ACUTE EXACERBATION ANOREXIA Physical Exam Vital Signs: Temp Pulse Resp BP Pulse Ox 98.4 F 65 14 102/57 L 100 10/30/17 11:58 10/30/17 11:58 10/30/17 11:58 10/30/17 11:58 10/30/17 11:58 Intake & Output 10/29/17 10/30/17 10/31/17 06:59 06:59 06:59 Intake Total 1979 1839 Output Total Balance 1977 1839 Weight 46.1 kg 48.4 kg Additional comments: When I first entered the room the patient was asleep or pretended to be asleep. She did wake up. Initially, she was not saying much but as I asked her more questions she appeared to interact more. She has been complaining of nausea and some diffuse abdominal pain. She has been keeping some liquids down but she is unable to tolerate any solids. She appears to be her stated age. She appears to be in fairly good health. Her facial appearance is unremarkable. Her lungs are clear to auscultation bilaterally. Her cardiac exam is regular without murmurs, gallops or rubs. The abdomen is soft and flat but diffusely tender upon palpation. However, there is no guarding or rebound noted and there are no hernias or masses present. The lower extremities are warm to touch without edema. The skin is warm dry and intact without lesions or rashes. Results Laboratory Results: 10/29/17 22:20 10/30/17 05:36 10/29/17 10/30/17 22:20 05:36 WBC 14.2 H RBC 4.10 Hgb 11.4 L Hct 35.4 L MCV 86 MCH 27.9 MCHC 32.4 RDW 13.6 Plt Count 528 H Seg Neutrophils % 85.6 H Lymphocytes % 8.6 L Monocytes % 5.7 Eosinophils % 0.0 Basophils % 0.1 Absolute Neutrophils 12.1 H Absolute Lymphocytes 1.2 Absolute Monocytes 0.8 Absolute Eosinophils 0.0 Absolute Basophils 0.0 Sodium 140.2 Potassium 3.3 L Chloride 102 Carbon Dioxide 29 Anion Gap 9 BUN 4 L Creatinine 0.46 L Est GFR ( Amer) > 60 Est GFR (Non-Af Amer) > 60 Glucose 121 H Calcium 9.3 Impressions: Abdomen/Pelvis CT 10/25/17 09:27 IMPRESSION: Generalized colitis. Assessment & Plan - Diagnosis (1) Anemia Is this a current diagnosis for this admission?: Yes Plan: Stable to improved. (2) Colitis Is this a current diagnosis for this admission?: Yes Plan: Continue 5-ASA and prednisone. Patient is now on cipro and flagyl po. B12 testing ordered. (3) DVT prophylaxis Is this a current diagnosis for this admission?: Yes Plan: Ambulatory (4) Eating disorder Is this a current diagnosis for this admission?: Yes Plan: This is going to increase the severity of the patient's disease management going forward. This could be a very dangerous diagnosis for this patient. She will need close outpatient follow-up. (5) Inflammatory bowel disease Is this a current diagnosis for this admission?: Yes Plan: She is currently being treated with mesalamine and prednisone. She should be able to get these medications at a very financially reasonable cost. (6) Major depression Qualifiers: Major depression recurrence: single episode Active/Remission status: currently active Major depression episode severity: severe Psychotic features: without psychotic features Qualified Code(s): F32.2 - Major depressive disorder, single episode, severe without psychotic features Is this a current diagnosis for this admission?: Yes Plan: The patient has been cleared for discharge by psychiatry. In light of the fact that she has depression with an underlying eating disorder she will need close outpatient follow-up. We can likely arrange this through [facility]. (7) Severe protein-calorie malnutrition Is this a current diagnosis for this admission?: Yes Plan: Continue supplements. - Time Time Spent with patient: 25-34 minutes - Inpatient Certification Medical Necessity: Risk of Complication if Not Cared For in Hospital - The patient is unable to tolerate liquids or solids at this time. She is therefore not meeting criteria for discharge.
[2017-10-31 05:47] LABS: ANION GAP 9 (5-19); BLOOD UREA NITROGEN 4 mg/dL (7-20); CALCIUM 8.8 mg/dL (8.4-10.2); CARBON DIOXIDE 26 mmol/L (22-30); CHLORIDE 104 mmol/L (98-107); GLUCOSE 139 mg/dL (75-110); POTASSIUM 3.9 mmol/L (3.6-5.0); SODIUM 139.4 mmol/L (137-145)
[2017-10-31] MEDS: CIPROFLOXACIN HCL 500 MG TABLET PO SCH (06:07)
[2017-10-31] MEDS: METRONIDAZOLE 500 MG TABLET PO SCH (06:07)
[2017-10-31] MEDS: PREDNISONE 20 MG TABLET PO SCH (09:06)
[2017-10-31] MEDS: ENOXAPARIN SODIUM INJ 30 MG/0.3 ML DISP.SYRIN SUBCUT SCH (09:06)
[2017-10-31] MEDS: MESALAMINE 400 MG CAPSULE.DR PO SCH ×3 (09:06→17:08)
--- NOTE | 2017-10-31 16:05 | PDOC PROGRESS REPORT ---
Subjective Progress Note for:: 10/31/17 Subjective:: The patient is a 27-year-old female who has a history of inflammatory bowel disease. She is currently admitted for inability to eat secondary to persistent nausea and vomiting with abdominal pain. I appreciate the recommendations from our GI service. The patient appears to have psychiatric overlay. She was seen by our psychiatric consultants who are concerned with a eating disorder. Patient continued to be very reluctant to speak to me today. I asked her many questions about her home life. She told me that there were no acute changes. When I asked her why she did not keep up with her insurance policy she could not give me a reason. She did not state that there are any specific stressors that are currently in her life. She denies being suicidal or homicidal. Reason For Visit: ULCERATIVE COLITIS ACUTE EXACERBATION ANOREXIA Physical Exam Vital Signs: Temp Pulse Resp BP Pulse Ox 98.7 F 72 12 94/50 L 100 10/31/17 07:35 10/31/17 07:35 10/31/17 07:35 10/31/17 07:35 10/31/17 07:35 Intake & Output 10/30/17 10/31/17 11/01/17 06:59 06:59 07:59 Intake Total 1840 920 Balance 1840 920 Weight 48.4 kg 49.9 kg Additional comments: The patient is awake today. She is appropriate. In terms of answering my questions but she is minimally conversant. She also avoids any amount of eye contact. She appears to be severely depressed. Her facial appearance is unremarkable. Her lungs are clear to auscultation bilaterally. Her cardiac exam is regular without murmurs, gallops or rubs. The abdomen is softer today. She has less pain with palpation. The abdomen is benign. The lower extremities are unremarkable. The skin is warm, clean dry and intact without lesions or rashes. Results Laboratory Results: 10/29/17 22:20 10/31/17 03:49 10/31/17 03:49 Sodium 139.4 Potassium 3.9 Chloride 104 Carbon Dioxide 26 Anion Gap 9 BUN 4 L Creatinine 0.48 L Est GFR ( Amer) > 60 Est GFR (Non-Af Amer) > 60 Glucose 139 H Calcium 8.8 Magnesium 1.8 Vitamin B12 748.0 Impressions: Abdomen/Pelvis CT 10/25/17 09:27 IMPRESSION: Generalized colitis. Assessment & Plan - Diagnosis (1) Anemia Is this a current diagnosis for this admission?: Yes Plan: Stable to improved. (2) Colitis Is this a current diagnosis for this admission?: Yes Plan: Continue 5-ASA and prednisone. Patient is now on cipro and flagyl po. B12 testing was done yesterday. B12 level is normal. (3) DVT prophylaxis Is this a current diagnosis for this admission?: Yes Plan: Ambulatory (4) Eating disorder Is this a current diagnosis for this admission?: Yes Plan: This is going to increase the severity of the patient's disease management going forward. This could be a very dangerous diagnosis for this patient. She will need close outpatient follow-up. (5) Inflammatory bowel disease Is this a current diagnosis for this admission?: Yes Plan: She is currently being treated with mesalamine and prednisone. She should be able to get these medications at a very financially reasonable cost. (6) Major depression Qualifiers: Major depression recurrence: single episode Active/Remission status: currently active Major depression episode severity: severe Psychotic features: without psychotic features Qualified Code(s): F32.2 - Major depressive disorder, single episode, severe without psychotic features Is this a current diagnosis for this admission?: Yes Plan: The patient has been cleared for discharge by psychiatry. In light of the fact that she has depression with an underlying eating disorder she will need close outpatient follow-up. We can likely arrange this through [facility]. She denies suicidal or homicidal ideations. (7) Severe protein-calorie malnutrition Is this a current diagnosis for this admission?: Yes Plan: Continue supplements. Advance diet. - Time Time Spent with patient: 25-34 minutes - Plan Summary Plan Summary: The patient is able to advance her diet today and I will plan on discharging her tomorrow, but, she will need close outpatient follow-up with her primary emergency care attendant, her GI physician and psychiatry. She has significant underlying psychiatric disease and may have an underlying eating disorder. This is going to impact the care for her inflammatory bowel disease quite heavily.
[2017-11-01] MEDS: CIPROFLOXACIN HCL 500 MG TABLET PO SCH (05:20)
[2017-11-01] MEDS: ENOXAPARIN SODIUM INJ 30 MG/0.3 ML DISP.SYRIN SUBCUT SCH (10:57)
[2017-11-01] MEDS: MESALAMINE 400 MG CAPSULE.DR PO SCH ×3 (10:58→17:17)
[2017-11-01] MEDS: PREDNISONE 20 MG TABLET PO SCH (10:58)
--- NOTE | 2017-11-01 15:48 | PDOC PROGRESS REPORT ---
Subjective Progress Note for:: 11/01/17 Subjective:: The patient is a 27-year-old female who has a history of inflammatory bowel disease. She is currently admitted for inability to eat secondary to persistent nausea and vomiting with abdominal pain. I appreciate the recommendations from our GI service. The patient appears to have psychiatric overlay. She was seen by our psychiatric consultants who are concerned with a eating disorder. Patient continued to be very reluctant to speak to me again today. The nurses report that she does not generally speak to them, either. Yesterday, I asked her many questions about her home life. She told me that there were no acute changes. When I asked her why she did not keep up with her insurance policy she could not give me a reason. She did not state that there are any specific stressors that are currently in her life. She denies being suicidal or homicidal. Today, I discussed the possibility of discharge. She told me that she would be okay. When I asked her again what her home life was like she would not make eye contact with me and she would not answer any of my questions. She continued to repeat that she would be okay. When I asked her if she lived at home or in a home she would not answer my question. She would not answer whether or not she lives with anybody. She would not describe to me what her home life was like. I did tell her that I was going to try to get in touch with a friend or family member. She denied whether she lived with a friend, a family member or a significant other. Reason For Visit: ULCERATIVE COLITIS ACUTE EXACERBATION ANOREXIA Physical Exam Vital Signs: Temp Pulse Resp BP Pulse Ox 98.5 F 72 14 104/62 100 11/01/17 12:00 11/01/17 12:00 11/01/17 12:00 11/01/17 12:00 11/01/17 12:00 Intake & Output 10/31/17 11/01/17 11/02/17 05:59 06:59 06:59 Intake Total Output Total Balance Weight Additional comments: The patient will sit up and speak, but she looks straight ahead and does not make eye contact. She speaks in a very soft voice when she does speak. She does not appear to be toxic. Her facial appearance is unremarkable. Her lungs remain clear to auscultation bilaterally. Her cardiac exam is regular without murmurs, gallops or rubs. Her abdominal exam has improved. Her abdomen seems to be less tender. Her abdomen is soft and flat. Bowel sounds are present but are hypoactive. She does not have guarding or rebound and there are no hernias or masses noted. The lower extremities are warm to touch without edema. The skin exam is unremarkable. No acute skin lesions or rashes are noted. Results Laboratory Results: 10/29/17 22:20 10/31/17 03:49 Impressions: Abdomen/Pelvis CT 10/25/17 09:27 IMPRESSION: Generalized colitis. Assessment & Plan - Diagnosis (1) Anemia Is this a current diagnosis for this admission?: Yes Plan: Stable to improved. (2) Colitis Is this a current diagnosis for this admission?: Yes Plan: Continue 5-ASA and prednisone. Patient is now on cipro only. Flagyl has been discontinued. B12 testing was done and is normal. (3) DVT prophylaxis Is this a current diagnosis for this admission?: Yes Plan: Ambulatory (4) Eating disorder Is this a current diagnosis for this admission?: Yes Plan: This is going to increase the severity of the patient's disease management going forward. This could be a very dangerous diagnosis for this patient. She will need close outpatient follow-up. (5) Inflammatory bowel disease Is this a current diagnosis for this admission?: Yes Plan: She is currently being treated with mesalamine and prednisone. She should be able to get these medications at a very financially reasonable cost. Discharge planning has been consulted. I will ask them for additional input tomorrow. (6) Major depression Qualifiers: Major depression recurrence: single episode Active/Remission status: currently active Major depression episode severity: severe Psychotic features: without psychotic features Qualified Code(s): F32.2 - Major depressive disorder, single episode, severe without psychotic features Is this a current diagnosis for this admission?: Yes Plan: The patient has been cleared for discharge by psychiatry. In light of the fact that she has depression with an underlying eating disorder she will need close outpatient follow-up. We can likely arrange [facility]. She denies suicidal or homicidal ideations. However, today when I address the possibility of discharge with the patient she demonstrated concerning behavior. She would not make eye contact. She would not tell me about her home situation. I am extremely worried about the fact that she could have a dangerous home situation. I am going to try to get in touch with 1 of her personal contacts. Because I am concerned about her home situation I am not going to discharge her today. We will need to clarify whether or not her living situation is safe to go home to. (7) Severe protein-calorie malnutrition Is this a current diagnosis for this admission?: Yes Plan: Continue supplements. Advance diet as tolerated. (8) Thrombocytosis Is this a current diagnosis for this admission?: Yes Plan: This is likely secondary to anemia, however, the patient does need this followed up after discharge. I asked her today who her doctors were and why she was not following up with a GI specialist. She was again very passive. She would not answer my questions directly. She does continue to say that she would be okay. She would not affirm that she was going to make a plan after discharge and follow-up with her doctors to include a GI specialist and her primary personal care worker. - Time Time Spent with patient: 25-34 minutes - Inpatient Certification Medical Necessity: Risk of Complication if Not Cared For in Hospital
[2017-11-02] MEDS: CIPROFLOXACIN HCL 500 MG TABLET PO SCH (05:23)
[2017-11-02] MEDS: PREDNISONE 20 MG TABLET PO SCH (08:51)
[2017-11-02] MEDS: MESALAMINE 400 MG CAPSULE.DR PO SCH ×3 (08:52→16:41)
[2017-11-02] MEDS: ENOXAPARIN SODIUM INJ 30 MG/0.3 ML DISP.SYRIN SUBCUT SCH (08:52)
--- NOTE | 2017-11-02 18:49 | PDOC PROGRESS REPORT ---
Subjective Progress Note for:: 11/02/17 Subjective:: The patient is a 27-year-old female who has a history of inflammatory bowel disease. She is currently admitted for inability to eat secondary to persistent nausea and vomiting with abdominal pain. I appreciate the recommendations from our GI service. Patient does not have insurance right now. Therefore, it is going to be very difficult to obtain Humira for her. Thus, GI has recommended prednisone with 5ASA. Over the last few days the patient continues to appear to be extremely depressed. She does deny suicidal or homicidal ideation. Yesterday, she would not speak to me at all. She would not answer any of my questions regarding her home life. She did however allow me to speak to her sister. When I spoke to her sister, her sister thought she was still in residential. Her sister confirmed that she is currently homeless and that both of her 2 children have been taken by DSS. Due to the patient's unfortunate social circumstances I am working with discharge planning to try to ensure that she has some sort of a reasonable living situation upon discharge, to ensure that she has access to her medications, to ensure that she has access to physicians after discharge. Reason For Visit: ULCERATIVE COLITIS ACUTE EXACERBATION ANOREXIA Physical Exam Vital Signs: Temp Pulse Resp BP Pulse Ox 98.5 F 71 16 94/45 L 89 L 11/02/17 15:50 11/02/17 15:50 11/02/17 15:50 11/02/17 15:50 11/02/17 15:50 Intake & Output 11/01/17 11/02/17 11/03/17 06:59 06:59 06:59 Intake Total 822 0 Output Total Balance 822 0 Weight 50.6 kg Additional comments: The patient was actually a little bit more talkative with me today. Her facial appearance is unremarkable. Her lungs are clear to auscultation bilaterally. Her cardiac exam is regular without murmurs, gallops or rubs. The abdomen was much more tender today than yesterday. She did have 4 bowel movements yesterday. However, the exam is quite benign. There is no guarding or rebound noted. No hernias or masses are noted. The extremity exam and skin exam are normal and unremarkable. Results Laboratory Results: 10/29/17 22:20 10/31/17 03:49 Impressions: Abdomen/Pelvis CT 10/25/17 09:27 IMPRESSION: Generalized colitis. Assessment & Plan - Diagnosis (1) Anemia Is this a current diagnosis for this admission?: Yes Plan: Stable to improved. (2) Colitis Is this a current diagnosis for this admission?: Yes Plan: Continue 5-ASA and prednisone. Will d/c cipro. Flagyl has been discontinued. B12 testing was done and is normal. (3) DVT prophylaxis Is this a current diagnosis for this admission?: Yes Plan: Ambulatory (4) Eating disorder Is this a current diagnosis for this admission?: Yes Plan: This is going to increase the severity of the patient's disease management going forward. This could be a very dangerous diagnosis for this patient. She will need close outpatient follow-up. (5) Inflammatory bowel disease Is this a current diagnosis for this admission?: Yes Plan: She is currently being treated with mesalamine and prednisone. She should be able to get these medications at a very financially reasonable cost. Discharge planning has been consulted. They are assisting in streamlining discharge. (6) Major depression Qualifiers: Major depression recurrence: single episode Active/Remission status: currently active Major depression episode severity: severe Psychotic features: without psychotic features Qualified Code(s): F32.2 - Major depressive disorder, single episode, severe without psychotic features Is this a current diagnosis for this admission?: Yes Plan: The patient has been cleared for discharge by psychiatry. In light of the fact that she has depression with an underlying eating disorder she will need close outpatient follow-up. We can likely arrange this through [facility]. She denies suicidal or homicidal ideations. See discussion above. (7) Severe protein-calorie malnutrition Is this a current diagnosis for this admission?: Yes Plan: Continue supplements. Advance diet as tolerated. (8) Thrombocytosis Is this a current diagnosis for this admission?: Yes Plan: This is likely secondary to anemia, however, the patient does need this followed up after discharge. - Time Time Spent with patient: 15-24 minutes - Inpatient Certification Medical Necessity: Other - Extenuating social circumstances.
[2017-11-03] MEDS: MESALAMINE 400 MG CAPSULE.DR PO SCH ×3 (08:40→16:48)
[2017-11-03] MEDS: PREDNISONE 20 MG TABLET PO SCH (08:40)
[2017-11-03] MEDS: ENOXAPARIN SODIUM INJ 30 MG/0.3 ML DISP.SYRIN SUBCUT SCH (08:42)
[2017-11-03] MEDS: FLUOXETINE HCL 20 MG CAPSULE PO SCH (16:50)
--- NOTE | 2017-11-03 22:03 | PDOC PROGRESS REPORT ---
Subjective Progress Note for:: 11/03/17 Subjective:: No complaints. Pateint reports had been eating but nurse relates that patient is NOT. Reason For Visit: ULCERATIVE COLITIS ACUTE EXACERBATION ANOREXIA Physical Exam Vital Signs: Temp Pulse Resp BP Pulse Ox 98.3 F 72 12 90/44 L 96 11/03/17 02:05 11/03/17 02:05 11/03/17 02:05 11/03/17 02:05 11/03/17 02:05 Intake & Output 11/02/17 11/03/17 11/04/17 06:59 06:59 06:59 Intake Total 822 1365 Balance 822 1365 Weight 50.6 kg 51.3 kg General appearance: PRESENT: no acute distress, thin Head exam: PRESENT: atraumatic, normocephalic Eye exam: PRESENT: conjunctiva pink, EOMI, PERRLA Mouth exam: PRESENT: moist Neck exam: PRESENT: full ROM. ABSENT: JVD, lymphadenopathy, tenderness Respiratory exam: PRESENT: clear to auscultation aba Cardiovascular exam: PRESENT: RRR. ABSENT: diastolic murmur, systolic murmur GI/Abdominal exam: PRESENT: normal bowel sounds, soft. ABSENT: tenderness Extremities exam: PRESENT: full ROM. ABSENT: tenderness Musculoskeletal exam: PRESENT: ambulatory Neurological exam: PRESENT: alert, awake, oriented to person, oriented to place , oriented to time, oriented to situation, CN II-XII grossly intact Psychiatric exam: PRESENT: depressed Skin exam: PRESENT: intact, normal color Results Laboratory Results: 10/29/17 22:20 10/31/17 03:49 Impressions: Abdomen/Pelvis CT 10/25/17 09:27 IMPRESSION: Generalized colitis. Assessment & Plan - Diagnosis (1) Inflammatory bowel disease Is this a current diagnosis for this admission?: Yes Plan: Continue present treatment (2) Major depression Qualifiers: Major depression recurrence: single episode Active/Remission status: currently active Major depression episode severity: severe Psychotic features: without psychotic features Qualified Code(s): F32.2 - Major depressive disorder, single episode, severe without psychotic features Is this a current diagnosis for this admission?: Yes Plan: Start prozac. Anticipate may be discahrged to jail - Time Medications reviewed and adjusted accordingly: Yes Anticipated discharge: Other - homeless longterm - Inpatient Certification Based on my medical assessment, after consideration of the patient's comorbidities, presenting symptoms, or acuity I expect that the services needed warrant INPATIENT care.: Yes I certify that my determination is in accordance with my understanding of Medicare's requirements for reasonable and necessary INPATIENT services [42 CFR 412.3e].: Yes Medical Necessity: Need Close Monitoring Due to Risk of Patient Decompensation
[2017-11-04] MEDS ORDERED: NORMAL SALINE 1000 ML 1,000 ML IV PRN (09:06)
[2017-11-04 10:44] LABS: HEMATOCRIT 28.6 % (36.0-47.0); HEMOGLOBIN 9.5 g/dL (12.0-15.5); MEAN CORPUSCULAR HEMOGLOBIN 28.7 pg (27.0-33.4); MEAN CORPUSCULAR HGB CONC 33.3 g/dL (32.0-36.0); MEAN CORPUSCULAR VOLUME 86 fl (80-97); PLATELET COUNT 483 10^3/uL (150-450); RED BLOOD COUNT 3.32 10^6/uL (3.72-5.28); WHITE BLOOD COUNT 20.6 10^3/uL (4.0-10.5)
[2017-11-04 10:54] LABS: ALANINE AMINOTRANSFERASE 38 U/L (9-52); ALBUMIN 2.8 g/dL (3.5-5.0); ALKALINE PHOSPHATASE 36 U/L (38-126); ANION GAP 9 (5-19); ASPARTATE AMINO TRANSFERASE 21 U/L (14-36); BLOOD UREA NITROGEN 11 mg/dL (7-20); CALCIUM 8.9 mg/dL (8.4-10.2); CARBON DIOXIDE 25 mmol/L (22-30); CHLORIDE 104 mmol/L (98-107); GLUCOSE 90 mg/dL (75-110); POTASSIUM 3.8 mmol/L (3.6-5.0); SODIUM 137.9 mmol/L (137-145); TOTAL PROTEIN 5.3 g/dL (6.3-8.2)
[2017-11-04 10:56] LABS: BILIRUBIN,TOTAL < 0.1 mg/dL (0.2-1.3)
[2017-11-04 11:11] LABS: ABSOLUTE LYMPHOCYTES# (MANUAL) 4.3 10^3/uL (0.5-4.7); ABSOLUTE MONOCYTES # (MANUAL) 1.9 10^3/uL (0.1-1.4); ABSOLUTE NEUTROPHILS# (MANUAL) 14.2 10^3/uL (1.7-8.2); BASOPHILS % (MANUAL) 0 % (0-2); EOSINOPHILS % (MANUAL) 1 % (0-6); LYMPHOCYTES % (MANUAL) 21 % (13-45); MONOCYTES % (MANUAL) 9 % (3-13); SEGMENTED NEUTROPHILS % (MAN) 69 % (42-78); TOTAL CELLS COUNTED 100
[2017-11-04 11:13] LABS: RBC MORPHOLOGY COMMENT NORMO-CYTIC/CHROMIC; TOXIC GRANULATION 1+
[2017-11-04 11:14] LABS: PLATELET COMMENT INCREASED
[2017-11-04] MEDS: PREDNISONE 20 MG TABLET PO SCH (11:28)
[2017-11-04] MEDS: FLUOXETINE HCL 20 MG CAPSULE PO SCH (11:28)
[2017-11-04] MEDS: MESALAMINE 400 MG CAPSULE.DR PO SCH ×3 (11:30→19:19)
[2017-11-04] MEDS: ENOXAPARIN SODIUM INJ 30 MG/0.3 ML DISP.SYRIN SUBCUT SCH (11:31)
[2017-11-04] MEDS ORDERED: BENZTROPINE MESYLATE INJ 2 MG/2 ML AMPULE IM ONE (13:30)
[2017-11-04] MEDS ORDERED: OLANZAPINE INJ/PF 10 MG SDV IM ONE (13:30)
--- NOTE | 2017-11-04 14:31 | PDOC PROGRESS REPORT ---
Subjective Progress Note for:: 11/04/17 Subjective:: No complaints. Nurse reports that patient had not been taking any medications or eating Review of symptoms Patient not cooperating to provide information All significant laboratories and diagnostics have been reviewed Reason For Visit: ULCERATIVE COLITIS ACUTE EXACERBATION ANOREXIA Physical Exam Vital Signs: Temp Pulse Resp BP Pulse Ox 98.5 F 77 16 99/68 L 97 11/04/17 11:10 11/04/17 11:10 11/04/17 11:10 11/04/17 11:10 11/04/17 11:10 Intake & Output 11/03/17 11/04/17 11/05/17 06:59 06:59 06:59 Intake Total 1365 1680 Output Total 4 Balance 1365 1676 Weight 51.3 kg 52.3 kg General appearance: PRESENT: cooperative, thin Head exam: PRESENT: atraumatic, normocephalic Eye exam: PRESENT: conjunctiva pink, EOMI, PERRLA Mouth exam: PRESENT: moist Neck exam: PRESENT: full ROM. ABSENT: JVD, lymphadenopathy, tenderness Respiratory exam: PRESENT: clear to auscultation aba Cardiovascular exam: PRESENT: RRR. ABSENT: diastolic murmur, systolic murmur Vascular exam: PRESENT: normal capillary refill GI/Abdominal exam: PRESENT: normal bowel sounds, soft. ABSENT: tenderness Extremities exam: PRESENT: full ROM Musculoskeletal exam: ABSENT: ambulatory Neurological exam: PRESENT: alert, awake, oriented to person Psychiatric exam: PRESENT: depressed Skin exam: PRESENT: intact, normal color Results Laboratory Results: 11/04/17 09:46 11/04/17 09:46 11/04/17 11/04/17 09:46 09:46 WBC 20.6 H RBC 3.32 L Hgb 9.5 L Hct 28.6 L MCV 86 MCH 28.7 MCHC 33.3 RDW 14.0 Plt Count 483 H Seg Neutrophils % Not Reportable Lymphocytes % Not Reportable Monocytes % Not Reportable Eosinophils % Not Reportable Basophils % Not Reportable Absolute Neutrophils Not Reportable Absolute Lymphocytes Not Reportable Absolute Monocytes Not Reportable Absolute Eosinophils Not Reportable Absolute Basophils Not Reportable Sodium 137.9 Potassium 3.8 Chloride 104 Carbon Dioxide 25 Anion Gap 9 BUN 11 Creatinine 0.54 Est GFR ( Amer) > 60 Est GFR (Non-Af Amer) > 60 Glucose 90 Calcium 8.9 Magnesium 1.9 Total Bilirubin < 0.1 L AST 21 ALT 38 Alkaline Phosphatase 36 L Total Protein 5.3 L Albumin 2.8 L Impressions: Abdomen/Pelvis CT 10/25/17 09:27 IMPRESSION: Generalized colitis. Assessment & Plan - Diagnosis (1) Inflammatory bowel disease Is this a current diagnosis for this admission?: Yes Plan: Continue present treatment however patient refuses to take medications (2) Major depression Qualifiers: Major depression recurrence: single episode Active/Remission status: currently active Major depression episode severity: severe Psychotic features: without psychotic features Qualified Code(s): F32.2 - Major depressive disorder, single episode, severe without psychotic features Is this a current diagnosis for this admission?: Yes Plan: Consult mental health for involuntary commitment since in my opinion patient is suicidal - Time Time Spent with patient: 15-24 minutes Medications reviewed and adjusted accordingly: Yes Anticipated discharge: Other - Psychiatric facility Within: Other - When bed available - Inpatient Certification Based on my medical assessment, after consideration of the patient's comorbidities, presenting symptoms, or acuity I expect that the services needed warrant INPATIENT care.: Yes I certify that my determination is in accordance with my understanding of Medicare's requirements for reasonable and necessary INPATIENT services [42 CFR 412.3e].: Yes Medical Necessity: Need Close Monitoring Due to Risk of Patient Decompensation, Need For IV Fluids
--- NOTE | 2017-11-04 15:35 | PSYCHOLOGICAL NOTE ---
Psych Note - Psych Note Psych Note: Reason for consult; concern the patient is suicidal Consent permission; none PEPE POLO is a 27 year old female who was brought from long term where she had been incarcerated. Patient has refused to eat for several days and extremely withdrawn. Patient was previously seen by the behavioral health team and subsequently cleared after patient's presentation improved. Behavioral health Team received second consult request. Patient's presentation has decompansated to once again not engaging with her environment and refusing to eat. Patient rarely talks and when asked will state she is eating. Patient will not answer any further questions and does not react to questions about her children (Patient's children are currently in CPS custody). Patient has dysphoric mood with flat affect. Patient is noted to be mostly sleep by attending nurse. It is noted patient still refuses to provide any consent permissions. Clinician contacted Aleksandra Polo, patient's sister, who disclosed the patient has no history of mental health or eating disorders but does have Crohn' s disease and it does become painful for her to eat at times. She continued to state to her knowledge the patient has never seen a therapist or taken any mental health medications. There is no family history of mental health. She reports the patient came to [facility] 5 years ago with her . Patient and family are originally from [place]. 2-3 years ago the patient and her . They have 2 children; 13-year-old and a 10-year-old boys. She reports "since the divorce she has been going downhill." She states the patient has had different behavior such as "not reprimanding her children anymore, difficulties at the school and needing help paying bills and rent." She states the patient is currently homeless to her knowledge. She confirms there are no family or friends in the local area. Medication recommendations made by psychiatric provider Dr. Bright include: 1. Zyprexa 5mg twice daily 2. Cogentin 1mg twice daily Diagnosis 311 (F32.9) unspecified depressive disorder 307.50 ( F50.9)unspecified eating or eating disorder Impression/ plan: Patient is recommended for IVC. Patient has decompensated from previous evaluation. Patient is again nonverbal and not interacting with her environment. Patient has stopped eating again, has flat affect and rarely speaks. Patient is currently danger to herself. She will be reevaluated. Dr. Sykes was consulted and the care and management of this patient.
[2017-11-04] MEDS: METRONIDAZOLE 500 MG/NS RTU 100 ML IV SCH ×2 (19:18→23:57)
[2017-11-05] MEDS: METRONIDAZOLE 500 MG/NS RTU 100 ML IV SCH ×4 (05:02→23:56)
[2017-11-05 05:32] LABS: HEMATOCRIT 28.9 % (36.0-47.0); HEMOGLOBIN 9.5 g/dL (12.0-15.5); MEAN CORPUSCULAR HEMOGLOBIN 28.5 pg (27.0-33.4); MEAN CORPUSCULAR VOLUME 86 fl (80-97); PLATELET COUNT 451 10^3/uL (150-450); RED BLOOD COUNT 3.35 10^6/uL (3.72-5.28); RED CELL DISTRIBUTION WIDTH 14.5 % (11.5-14.0); WHITE BLOOD COUNT 20.2 10^3/uL (4.0-10.5)
[2017-11-05 05:44] LABS: ANION GAP 8 (5-19); BLOOD UREA NITROGEN 15 mg/dL (7-20); CALCIUM 9.3 mg/dL (8.4-10.2); CARBON DIOXIDE 27 mmol/L (22-30); CHLORIDE 102 mmol/L (98-107); GLUCOSE 69 mg/dL (75-110); POTASSIUM 4.6 mmol/L (3.6-5.0); SODIUM 137.3 mmol/L (137-145)
[2017-11-05 06:10] LABS: ABSOLUTE LYMPHOCYTES# (MANUAL) 1.6 10^3/uL (0.5-4.7); ABSOLUTE MONOCYTES # (MANUAL) 1.8 10^3/uL (0.1-1.4); ABSOLUTE NEUTROPHILS# (MANUAL) 16.8 10^3/uL (1.7-8.2); BASOPHILS % (MANUAL) 0 % (0-2); EOSINOPHILS % (MANUAL) 0 % (0-6); LYMPHOCYTES % (MANUAL) 8 % (13-45); MONOCYTES % (MANUAL) 9 % (3-13); SEGMENTED NEUTROPHILS % (MAN) 83 % (42-78); TOTAL CELLS COUNTED 100
[2017-11-05 06:11] LABS: PLATELET COMMENT ADEQUATE
[2017-11-05 06:14] LABS: HYPOCHROMASIA SLIGHT; POIKILOCYTOSIS SLIGHT
[2017-11-05 06:15] LABS: BURR CELLS SLIGHT; OVALOCYTES SLIGHT
[2017-11-05] MEDS: PREDNISONE 20 MG TABLET PO SCH (10:08)
[2017-11-05] MEDS: MESALAMINE 400 MG CAPSULE.DR PO SCH ×3 (10:09→17:37)
[2017-11-05] MEDS: ENOXAPARIN SODIUM INJ 30 MG/0.3 ML DISP.SYRIN SUBCUT SCH (10:18)
[2017-11-05] MEDS: BENZTROPINE MESYLATE INJ 2 MG/2 ML AMPULE IM SCH (12:46)
--- NOTE | 2017-11-05 18:48 | PDOC PROGRESS REPORT ---
Subjective Progress Note for:: 11/05/17 Subjective:: No complaints. Continues not wanting to eat and refusing treatment Review of symptoms Patient not cooperating to provide information All significant laboratories and diagnostics have been reviewed Reason For Visit: ULCERATIVE COLITIS ACUTE EXACERBATION ANOREXIA Physical Exam Vital Signs: Temp Pulse Resp BP Pulse Ox 98.3 F 83 12 93/46 L 100 11/04/17 23:27 11/04/17 23:27 11/04/17 23:27 11/04/17 23:27 11/04/17 23:27 Intake & Output 11/03/17 11/04/17 11/05/17 06:59 06:59 06:59 Intake Total 1365 1680 1234 Output Total 4 Balance 1365 1676 1234 Weight 51.3 kg 52.3 kg 51.2 kg General appearance: PRESENT: no acute distress, other - Uncooperative Head exam: PRESENT: atraumatic, normocephalic Eye exam: PRESENT: EOMI, PERRLA Ear exam: PRESENT: normal external ear exam Neck exam: PRESENT: full ROM. ABSENT: JVD, lymphadenopathy, tenderness Respiratory exam: PRESENT: clear to auscultation aba Cardiovascular exam: PRESENT: RRR. ABSENT: diastolic murmur, systolic murmur Vascular exam: PRESENT: normal capillary refill GI/Abdominal exam: PRESENT: normal bowel sounds, soft. ABSENT: tenderness Extremities exam: PRESENT: full ROM. ABSENT: pedal edema Musculoskeletal exam: ABSENT: ambulatory Neurological exam: PRESENT: alert, awake, oriented to person Psychiatric exam: PRESENT: depressed Results Laboratory Results: 11/05/17 03:55 11/05/17 03:55 11/04/17 11/04/17 11/05/17 09:46 09:46 03:55 WBC 20.6 H 20.2 H RBC 3.32 L 3.35 L Hgb 9.5 L 9.5 L Hct 28.6 L 28.9 L MCV 86 86 MCH 28.7 28.5 MCHC 33.3 33.0 RDW 14.0 14.5 H Plt Count 483 H 451 H Seg Neutrophils % Not Reportable Not Reportable Lymphocytes % Not Reportable Not Reportable Monocytes % Not Reportable Not Reportable Eosinophils % Not Reportable Not Reportable Basophils % Not Reportable Not Reportable Absolute Neutrophils Not Reportable Not Reportable Absolute Lymphocytes Not Reportable Not Reportable Absolute Monocytes Not Reportable Not Reportable Absolute Eosinophils Not Reportable Not Reportable Absolute Basophils Not Reportable Not Reportable Sodium 137.9 Potassium 3.8 Chloride 104 Carbon Dioxide 25 Anion Gap 9 BUN 11 Creatinine 0.54 Est GFR ( Amer) > 60 Est GFR (Non-Af Amer) > 60 Glucose 90 Calcium 8.9 Magnesium 1.9 Total Bilirubin < 0.1 L AST 21 ALT 38 Alkaline Phosphatase 36 L Total Protein 5.3 L Albumin 2.8 L 11/05/17 03:55 WBC RBC Hgb Hct MCV MCH MCHC RDW Plt Count Seg Neutrophils % Lymphocytes % Monocytes % Eosinophils % Basophils % Absolute Neutrophils Absolute Lymphocytes Absolute Monocytes Absolute Eosinophils Absolute Basophils Sodium 137.3 Potassium 4.6 Chloride 102 Carbon Dioxide 27 Anion Gap 8 BUN 15 Creatinine 0.48 L Est GFR ( Amer) > 60 Est GFR (Non-Af Amer) > 60 Glucose 69 L Calcium 9.3 Magnesium Total Bilirubin AST ALT Alkaline Phosphatase Total Protein Albumin Impressions: Abdomen/Pelvis CT 10/25/17 09:27 IMPRESSION: Generalized colitis. Assessment & Plan - Diagnosis (1) Inflammatory bowel disease Is this a current diagnosis for this admission?: Yes Plan: Continue present treatment however patient refuses to take medications (2) Major depression Qualifiers: Major depression recurrence: single episode Active/Remission status: currently active Major depression episode severity: severe Psychotic features: without psychotic features Qualified Code(s): F32.2 - Major depressive disorder, single episode, severe without psychotic features Is this a current diagnosis for this admission?: Yes Plan: Continue IVC papers. To order Zyprexa and Cogentin IM - Time Time Spent with patient: Less than 15 minutes Medications reviewed and adjusted accordingly: Yes Anticipated discharge: Other - Hopefully to seek psychiatric place Within: when bed available - Inpatient Certification Based on my medical assessment, after consideration of the patient's comorbidities, presenting symptoms, or acuity I expect that the services needed warrant INPATIENT care.: Yes I certify that my determination is in accordance with my understanding of Medicare's requirements for reasonable and necessary INPATIENT services [42 CFR 412.3e].: Yes Medical Necessity: Need Close Monitoring Due to Risk of Patient Decompensation, Need for IV Antibiotics
[2017-11-05] MEDS: OLANZAPINE INJ/PF 10 MG SDV IM SCH (21:26)
[2017-11-06] MEDS: METRONIDAZOLE 500 MG/NS RTU 100 ML IV SCH ×4 (05:05→23:08)
[2017-11-06] MEDS: ENOXAPARIN SODIUM INJ 30 MG/0.3 ML DISP.SYRIN SUBCUT SCH (11:20)
[2017-11-06] MEDS: BENZTROPINE MESYLATE INJ 2 MG/2 ML AMPULE IM SCH (11:32)
[2017-11-06] MEDS: MESALAMINE 400 MG CAPSULE.DR PO SCH ×3 (11:32→18:55)
[2017-11-06] MEDS: PREDNISONE 20 MG TABLET PO SCH (11:32)
--- NOTE | 2017-11-06 15:24 | PSYCHOLOGICAL NOTE ---
Psych Note - Psych Note Psych Note: Reason for consult; concern the patient is suicidal Consent permission; none PEPE POLO is a 27 year old female who was brought from sn[facility] where she had been incarcerated. Patient has refused to eat for several days and extremely withdrawn. Patient was previously seen by the behavioral health team and subsequently cleared after patient's presentation improved. Behavioral health Team received second consult request. Patient's presentation had decompansated to once again not engaging with her environment and refusing to eat. Conducted checking with patient Patient is sitting up in bed and awake. She answers some questions by nodding her head or shaking her head. Patient consented to animal therapy with the therapy dog Alma. Clinician watch patient's eyes follow the dog prior to the dog entering the patient's room. When asked if the patient liked animals she nodded yes. Patient still refuses to contact anyone. When asked if she would like clinician to find out any information on updates on her children she shook her head no and refused to further engage. Patient is noted to be eating ( drnking broth) and asked for ice cream from the nurse the previous evening. Patient's affect is still flat however patient's attending nurse reports there were 2 times where some emotion is briefly noted. Patient still has no TV turned on her room and has extremely limited engagement with her environment. Medication recommendations made by psychiatric provider Dr. Bright include: Medications can be given orally if the patient is willing to take the medication. 1. Zyprexa 5mg twice daily 2. Cogentin 1mg twice daily Diagnosis 311 (F32.9) unspecified depressive disorder r/o 307.50 ( F50.9)unspecified eating or eating disorder Impression/ plan: Patient is recommended for IVC. Patient has made limited improvement since starting medications. Patient's affect is still flat however patient's attending nurse reports there were 2 times where some emotion is briefly noted. Patient still has no TV turned on in her room and has extremely limited engagement with her environment. Patient is minimally speaking and there is significant concern the patient will decompansated again since it has been only 24 hrs since the start of medications. Patient is currently danger to herself. She will be reevaluated. Dr. Sykes was consulted and the care and management of this patient.
--- NOTE | 2017-11-06 19:20 | PDOC PROGRESS REPORT ---
Subjective Progress Note for:: 11/06/17 Subjective:: Patient not wanting to cooperate in gathering any concerns. However, today she is sitting on the edge of the bed when compared to previous assessment Review of symptoms Patient not cooperating to provide information All significant laboratories and diagnostics had been reviewed Reason For Visit: ULCERATIVE COLITIS ACUTE EXACERBATION ANOREXIA Physical Exam Vital Signs: Temp Pulse Resp BP Pulse Ox 98.6 F 76 17 100/54 L 100 11/06/17 07:21 11/06/17 07:21 11/06/17 07:21 11/06/17 07:21 11/06/17 07:21 Intake & Output 11/05/17 11/06/17 11/07/17 06:59 06:59 06:59 Intake Total 1234 1437 Balance 1234 1437 Weight 51.2 kg 52.4 kg General appearance: PRESENT: thin, other - Uncooperative Head exam: PRESENT: atraumatic, normocephalic Eye exam: PRESENT: conjunctiva pale, EOMI, PERRLA Ear exam: PRESENT: normal external ear exam Neurological exam: PRESENT: alert, awake, oriented to person Psychiatric exam: PRESENT: depressed Results Laboratory Results: 11/05/17 03:55 11/05/17 03:55 Impressions: Abdomen/Pelvis CT 10/25/17 09:27 IMPRESSION: Generalized colitis. Assessment & Plan - Diagnosis (1) Inflammatory bowel disease Is this a current diagnosis for this admission?: Yes Plan: Continue present treatment however patient refuses to take medications (2) Major depression Qualifiers: Major depression recurrence: single episode Active/Remission status: currently active Major depression episode severity: severe Psychotic features: without psychotic features Qualified Code(s): F32.2 - Major depressive disorder, single episode, severe without psychotic features Is this a current diagnosis for this admission?: Yes Plan: Continue IVC papers. Zyprexa and Cogentin IM since not amenable to take p.o.. This patient needs commitment since we are not a psychiatric facility - Time Time Spent with patient: Less than 15 minutes Medications reviewed and adjusted accordingly: Yes Anticipated discharge: Other - Requires commitment to psychiatric facility Within: when bed available - Inpatient Certification Based on my medical assessment, after consideration of the patient's comorbidities, presenting symptoms, or acuity I expect that the services needed warrant INPATIENT care.: Yes I certify that my determination is in accordance with my understanding of Medicare's requirements for reasonable and necessary INPATIENT services [42 CFR 412.3e].: Yes Medical Necessity: Need Close Monitoring Due to Risk of Patient Decompensation
[2017-11-06] MEDS: OLANZAPINE INJ/PF 10 MG SDV IM SCH (21:00)
[2017-11-07] MEDS: METRONIDAZOLE 500 MG/NS RTU 100 ML IV SCH ×3 (05:01→17:02)
[2017-11-07] MEDS: PREDNISONE 20 MG TABLET PO SCH (09:36)
[2017-11-07] MEDS: ENOXAPARIN SODIUM INJ 30 MG/0.3 ML DISP.SYRIN SUBCUT SCH (09:37)
[2017-11-07] MEDS: MESALAMINE 400 MG CAPSULE.DR PO SCH ×3 (09:37→17:02)
[2017-11-07] MEDS: BENZTROPINE MESYLATE INJ 2 MG/2 ML AMPULE IM SCH (09:37)
--- NOTE | 2017-11-07 13:54 | PDOC PROGRESS REPORT ---
Subjective Progress Note for:: 11/07/17 Subjective:: No complaints Review of symptoms Patient not cooperating to provide information All significant laboratories and diagnostics had been reviewed Reason For Visit: ULCERATIVE COLITIS ACUTE EXACERBATION ANOREXIA Physical Exam Vital Signs: Temp Pulse Resp BP Pulse Ox 98.6 F 93 16 110/54 L 100 11/07/17 00:00 11/07/17 00:00 11/07/17 00:00 11/07/17 00:00 11/07/17 00:00 Intake & Output 11/06/17 11/07/17 11/08/17 06:59 06:59 06:59 Intake Total 1437 1240 Balance 1437 1240 Weight 52.4 kg 52.1 kg General appearance: PRESENT: thin Head exam: PRESENT: atraumatic, normocephalic Eye exam: PRESENT: conjunctiva pink, EOMI, PERRLA Ear exam: PRESENT: normal external ear exam Mouth exam: PRESENT: moist Neck exam: ABSENT: JVD, lymphadenopathy, tenderness Respiratory exam: PRESENT: clear to auscultation aba Cardiovascular exam: PRESENT: RRR. ABSENT: diastolic murmur, systolic murmur GI/Abdominal exam: PRESENT: soft, tenderness. ABSENT: normal bowel sounds Extremities exam: PRESENT: full ROM. ABSENT: pedal edema, tenderness Musculoskeletal exam: PRESENT: ambulatory Neurological exam: PRESENT: alert, awake, oriented to person, oriented to place , CN II-XII grossly intact Psychiatric exam: PRESENT: depressed Skin exam: PRESENT: intact, normal color Results Laboratory Results: 11/05/17 03:55 11/05/17 03:55 Impressions: Abdomen/Pelvis CT 10/25/17 09:27 IMPRESSION: Generalized colitis. Assessment & Plan - Diagnosis (1) Inflammatory bowel disease Is this a current diagnosis for this admission?: Yes Plan: Continue present treatment however patient refuses to take medications. Refuses Flagyl (2) Major depression Qualifiers: Major depression recurrence: single episode Active/Remission status: currently active Major depression episode severity: severe Psychotic features: without psychotic features Qualified Code(s): F32.2 - Major depressive disorder, single episode, severe without psychotic features Is this a current diagnosis for this admission?: Yes Plan: Continue IVC papers. Zyprexa and Cogentin IM since not amenable to take p.o.. This patient may benefit from commitment since we are not a psychiatric facility - Time Time Spent with patient: Less than 15 minutes Medications reviewed and adjusted accordingly: Yes Anticipated discharge: Home Within: within 24 hours - Inpatient Certification Based on my medical assessment, after consideration of the patient's comorbidities, presenting symptoms, or acuity I expect that the services needed warrant INPATIENT care.: Yes I certify that my determination is in accordance with my understanding of Medicare's requirements for reasonable and necessary INPATIENT services [42 CFR 412.3e].: Yes Medical Necessity: Need Close Monitoring Due to Risk of Patient Decompensation
--- NOTE | 2017-11-07 16:44 | PSYCHOLOGICAL NOTE ---
Psych Note - Psych Note Psych Note: Reason for consult: Patient is not eating Eval: 4:20 pm Final Disposition 4:45 pm Patient is a 27-year-old female. Patient reports that she has been eating liquid diet, ensures and her ice cream. Patient reports that she is not sure if she is depressed but states that she feels it is "a little bit of everything ". Clinician observed patient is guarded, displays flat affect, but will smile at jokes. Clinician observed patient appears lethargic. Per nurse : Patient has been eating a liquid diet, drinking her ensures, and eating ice cream. Patient responded well ( smiling) with [facility]'s therapeutic dog. Medication recommendations made by [facility] contracted psychiatric provider Dr. Deangelo MD include: Medications can be given orally if the patient is willing to take the medication. 1. Continue Zyprexa 5mg twice daily 2. Continue Cogentin 1mg twice daily Diagnosis 311 (F32.9) unspecified depressive disorder r/o 307.50 ( F50.9)unspecified eating or eating disorder V 60.0 (Z 59.0) homelessness Impression/Plan: Recommendation to rescind involuntary commitment due to patient no longer meeting criteria [place] GS 122C. Patient is psychiatrically cleared for discharge. Clinician observed patient's behavior is volitional. Clinician observed patient's behavior is a manifestation of social factors to include lack of housing and resources. Clinician observed patient is not appropriate for inpatient psychiatric stay. Clinician observed patient is in need of social resources. Clinician observed through comprehensive chart review of previous clinical notes and through direct observations ( face to face ) that patient displays a clear behavioral pattern of presenting differently when discharging as evidenced by constricting eating when the airport planner becomes involved in the care of patient. Clinician observed patient's behavior will improve to include eating, having appropriate facial expressions and communicating regularly prior to discharge planning. Recommendation for case management/ discharge planning to take over and link patient to social resources and outpatient therapy. Consulted with Dr. Sykes regarding the management and care of patient.
[2017-11-07] MEDS: OLANZAPINE INJ/PF 10 MG SDV IM SCH (21:41)
[2017-11-08] MEDS: METRONIDAZOLE 500 MG/NS RTU 100 ML IV SCH ×5 (00:37→23:08)
[2017-11-08] MEDS: BENZTROPINE MESYLATE INJ 2 MG/2 ML AMPULE IM SCH (12:07)
[2017-11-08] MEDS: PREDNISONE 20 MG TABLET PO SCH (12:07)
[2017-11-08] MEDS: MESALAMINE 400 MG CAPSULE.DR PO SCH ×3 (12:07→18:25)
[2017-11-08] MEDS: ENOXAPARIN SODIUM INJ 30 MG/0.3 ML DISP.SYRIN SUBCUT SCH (12:07)
--- NOTE | 2017-11-08 17:27 | PDOC PROGRESS REPORT ---
Subjective Progress Note for:: 11/08/17 Subjective:: No complaints Review of symptoms Patient not cooperating to provide information All significant laboratories and diagnostics had been reviewed Reason For Visit: ULCERATIVE COLITIS ACUTE EXACERBATION ANOREXIA Physical Exam Vital Signs: Temp Pulse Resp BP Pulse Ox 98.4 F 81 12 105/60 100 11/08/17 07:32 11/08/17 07:32 11/08/17 07:32 11/08/17 07:32 11/08/17 07:32 Intake & Output 11/07/17 11/08/17 11/09/17 06:59 06:59 06:59 Intake Total 1240 1490 Balance 1240 1490 Weight 52.1 kg 52.1 kg General appearance: PRESENT: other - uncooperative Head exam: PRESENT: atraumatic, normocephalic Eye exam: PRESENT: conjunctiva pink, EOMI, PERRLA Ear exam: PRESENT: normal external ear exam Mouth exam: PRESENT: moist Neck exam: PRESENT: full ROM. ABSENT: JVD, lymphadenopathy, tenderness Respiratory exam: PRESENT: clear to auscultation aba Cardiovascular exam: PRESENT: RRR. ABSENT: diastolic murmur, systolic murmur GI/Abdominal exam: PRESENT: normal bowel sounds, soft. ABSENT: tenderness Extremities exam: PRESENT: full ROM Musculoskeletal exam: PRESENT: ambulatory Neurological exam: PRESENT: alert, awake, oriented to person, oriented to place Results Laboratory Results: 11/05/17 03:55 11/05/17 03:55 Impressions: Abdomen/Pelvis CT 10/25/17 09:27 IMPRESSION: Generalized colitis. Assessment & Plan - Diagnosis (1) Inflammatory bowel disease Is this a current diagnosis for this admission?: Yes Plan: Continue present treatment however patient refuses to take medications. Refuses Flagyl (2) Major depression Qualifiers: Major depression recurrence: single episode Active/Remission status: currently active Major depression episode severity: severe Psychotic features: without psychotic features Qualified Code(s): F32.2 - Major depressive disorder, single episode, severe without psychotic features Is this a current diagnosis for this admission?: Yes Plan: Continue IVC papers. Zyprexa and Cogentin IM since not amenable to take p.o.Discussed patient's psychiatric condition with psych on November 07 and patient had been cleared from the standpoint of view. Consult case management since at this point in time I do not have anything else to offer and patient needs to be discharged - Time Time Spent with patient: Less than 15 minutes Medications reviewed and adjusted accordingly: Yes Anticipated discharge: Home - Inpatient Certification Based on my medical assessment, after consideration of the patient's comorbidities, presenting symptoms, or acuity I expect that the services needed warrant INPATIENT care.: Yes I certify that my determination is in accordance with my understanding of Medicare's requirements for reasonable and necessary INPATIENT services [42 CFR 412.3e].: Yes Medical Necessity: Other - Case management needs to coordinate discharge resources
[2017-11-08] MEDS: OLANZAPINE 2.5 MG TABLET PO SCH (23:08)
[2017-11-09] MEDS: METRONIDAZOLE 500 MG/NS RTU 100 ML IV SCH ×4 (05:19→23:18)
[2017-11-09] MEDS: PREDNISONE 20 MG TABLET PO SCH (09:06)
[2017-11-09] MEDS: MESALAMINE 400 MG CAPSULE.DR PO SCH ×3 (09:06→17:58)
[2017-11-09] MEDS: BENZTROPINE MESYLATE 1 MG TABLET PO SCH (09:06)
[2017-11-09] MEDS: ENOXAPARIN SODIUM INJ 30 MG/0.3 ML DISP.SYRIN SUBCUT SCH (09:08)
--- NOTE | 2017-11-09 16:24 | PDOC PROGRESS REPORT ---
Subjective Progress Note for:: 11/09/17 Subjective:: No complaints. Patient had been eating and taken her medicines. The time of dictation this note was informed that patient's sister is willing to take care of her. Patient will be sent in a bus to [place] in a.m. Review of symptoms Patient not cooperating to provide information All significant laboratories and diagnostics had been reviewed Reason For Visit: ULCERATIVE COLITIS ACUTE EXACERBATION ANOREXIA Physical Exam Vital Signs: Temp Pulse Resp BP Pulse Ox 98.2 F 78 12 102/57 L 100 11/09/17 15:00 11/09/17 15:00 11/09/17 15:00 11/09/17 15:00 11/09/17 15:00 Intake & Output 11/08/17 11/09/17 11/10/17 06:59 06:59 06:59 Intake Total 1490 1897 Balance 1490 1897 Weight 52.1 kg 52 kg General appearance: PRESENT: cooperative, thin Head exam: PRESENT: atraumatic, normocephalic Eye exam: PRESENT: conjunctiva pink, EOMI, PERRLA Ear exam: PRESENT: normal external ear exam Mouth exam: PRESENT: moist Neck exam: PRESENT: full ROM. ABSENT: JVD, lymphadenopathy, tenderness Respiratory exam: PRESENT: clear to auscultation baa Cardiovascular exam: PRESENT: RRR. ABSENT: diastolic murmur, systolic murmur Vascular exam: PRESENT: normal capillary refill GI/Abdominal exam: PRESENT: normal bowel sounds, soft, tenderness Extremities exam: PRESENT: full ROM. ABSENT: pedal edema Musculoskeletal exam: PRESENT: ambulatory Neurological exam: PRESENT: alert, awake, oriented to person, CN II-XII grossly intact Psychiatric exam: PRESENT: appropriate affect, normal mood Skin exam: PRESENT: intact, normal color Results Laboratory Results: 11/05/17 03:55 11/05/17 03:55 Impressions: Abdomen/Pelvis CT 10/25/17 09:27 IMPRESSION: Generalized colitis. Assessment & Plan - Diagnosis (1) Inflammatory bowel disease Is this a current diagnosis for this admission?: Yes Plan: Patient has been taking her medications (2) Major depression Qualifiers: Major depression recurrence: single episode Active/Remission status: currently active Major depression episode severity: severe Psychotic features: without psychotic features Qualified Code(s): F32.2 - Major depressive disorder, single episode, severe without psychotic features Is this a current diagnosis for this admission?: Yes Plan: Patient had been taking Zyprexa - Time Time Spent with patient: 15-24 minutes Medications reviewed and adjusted accordingly: Yes Within: within 24 hours - Inpatient Certification Based on my medical assessment, after consideration of the patient's comorbidities, presenting symptoms, or acuity I expect that the services needed warrant INPATIENT care.: Yes I certify that my determination is in accordance with my understanding of Medicare's requirements for reasonable and necessary INPATIENT services [42 CFR 412.3e].: Yes Medical Necessity: Need Close Monitoring Due to Risk of Patient Decompensation
[2017-11-09] MEDS: OLANZAPINE 2.5 MG TABLET PO SCH (21:06)
[2017-11-10] MEDS: METRONIDAZOLE 500 MG/NS RTU 100 ML IV SCH (05:31)
[2017-11-10 08:14] VITALS: BP 106/63
[2017-11-10] MEDS: MESALAMINE 400 MG CAPSULE.DR PO SCH (09:29)
[2017-11-10] MEDS: BENZTROPINE MESYLATE 1 MG TABLET PO SCH (09:29)
[2017-11-10] MEDS: PREDNISONE 20 MG TABLET PO SCH (09:29)
[2017-11-10] MEDS: ENOXAPARIN SODIUM INJ 30 MG/0.3 ML DISP.SYRIN SUBCUT SCH (09:33)
--- NOTE | 2017-11-11 17:13 | PDOC DISCHARGE SUMMARY ---
General - Admit/Disc Date/PCP Admission Date/Primary Care Provider: 10/25/17 11:58 Discharge Date: 11/10/17 - Discharge Diagnosis (1) Inflammatory bowel disease Is this a current diagnosis for this admission?: Yes (2) Major depression Is this a current diagnosis for this admission?: Yes (3) Anemia Is this a current diagnosis for this admission?: Yes (4) Eating disorder Is this a current diagnosis for this admission?: Yes (5) Severe protein-calorie malnutrition Is this a current diagnosis for this admission?: Yes (6) Thrombocytosis Is this a current diagnosis for this admission?: Yes - Additional Information Resuscitation Status: Full Code Discharge Diet: As Tolerated Discharge Activity: Activity As Tolerated Prescriptions: Mesalamine [Delzicol] 800 mg PO TID #180 cap.drtab. Olanzapine [Zyprexa 2.5 mg Tablet] 7.5 mg PO QHS #90 tablet Prednisone [Deltasone 20 mg Tablet] 10 mg PO DAILY #30 tablet Home Medications: Mesalamine [Delzicol] 800 mg PO TID #180 cap.drtab. 11/10/17 Olanzapine [Zyprexa 2.5 mg Tablet] 7.5 mg PO QHS #90 tablet 11/10/17 Prednisone [Deltasone 20 mg Tablet] 10 mg PO DAILY #30 tablet 11/10/17 History of Present Illness History of Present Illness: PEPE POLO is a 27 year old female who was brought from care home where she had been incarceraed and complained of poor appetite and stomach pain. Patient had refused to eat for several days and was withdrawn. She does have a past history of ulcerative colitis for which she was treated with Remicade. History taking was difficult since patient was poorly cooperative. Due to presentation and comorbidities patient was admitted under the hospitalist service. Hospital Course Hospital Course: Patient was seen by Dr. Barros who recommended for patient to be placed on Pentasa and steroids oral. Patient's treatment was difficulted because of refusal to take medications and she also refused to eat. Patient was initially evaluated by mental health. On initial intake patient was not deemed a candidate for hospitalization to psychiatric facility. Since her behavior persisted after several days on her hospitalization, opted to place patient on involuntary commitment. It was quite evident that patient posed a threat to herself. Patient was placed on Zyprexa as per mental health recommendation. She began to start eating and was taking medications by mouth. IVC papers were rescinded by mental [facility]. Case management was reconsulted and assisted in contacting patient's sister who lives in [place]. She was amenable to take care of patient. Case management made arrangements and patient was sent to [place] via [employer] bus. Prescriptions were given for Zyprexa, Cogentin, Pentasa and steroid. Patient had been reasonably stabilized. She has been made aware that it was important for her to go to mental health when she gets to [facility], get a job and try to do better on the overall. Physical Exam Vital Signs: Temp Pulse Resp BP Pulse Ox 98.1 F 68 16 100/59 L 95 11/10/17 05:24 11/10/17 05:24 11/10/17 05:24 11/10/17 05:24 11/10/17 05:24 Intake & Output 11/09/17 11/10/17 11/11/17 06:59 06:59 06:59 Intake Total 1897 500 Balance 1897 500 Weight 52 kg 45.5 kg General appearance: PRESENT: cooperative, thin Head exam: PRESENT: atraumatic, normocephalic Eye exam: PRESENT: conjunctiva pink, EOMI, PERRLA Ear exam: PRESENT: normal external ear exam Mouth exam: PRESENT: moist Neck exam: PRESENT: full ROM. ABSENT: JVD, lymphadenopathy, tenderness Respiratory exam: PRESENT: clear to auscultation aba Cardiovascular exam: PRESENT: diastolic murmur, RRR, systolic murmur Vascular exam: PRESENT: normal capillary refill GI/Abdominal exam: PRESENT: normal bowel sounds, soft, tenderness Rectal exam: PRESENT: deferred Extremities exam: PRESENT: full ROM. ABSENT: pedal edema Musculoskeletal exam: PRESENT: ambulatory Neurological exam: PRESENT: alert, awake, oriented to person, oriented to place , oriented to time, oriented to situation, CN II-XII grossly intact Psychiatric exam: PRESENT: depressed Skin exam: PRESENT: intact, normal color Results Laboratory Results: 11/05/17 03:55 11/05/17 03:55 Impressions: Abdomen/Pelvis CT 10/25/17 09:27 IMPRESSION: Generalized colitis. Qualifiers - * PATEINT BEING DISCHARGED WITH ANY OF THE FOLLOWING DIAGNOSIS?: No Plan Discharge Plan: Patient will be discharged to go to [place] under her sister's care Time Spent: Less than 30 Minutes
== END 2017-11-10 11:00 | disposition home or self-care (01) | DRG 385 ==
LOC: ER 11:00 → EH 10-25 11:58 → 5 10-25 15:25 → 2S 11-09 17:15
PROVIDERS: ADMIT Emergency Medicine; ATTEND Emergency Medicine
DX: K51.90 Ulcerative colitis, unspecified, without complications (principal); E43 Unspecified severe protein-calorie malnutrition; F32.2 Major depressive disorder, single episode, severe without psychotic features; Z68.1 Body mass index [BMI] 19.9 or less, adult; R63.0 Anorexia; D64.9 Anemia, unspecified; D47.3 Essential (hemorrhagic) thrombocythemia; Z53.20 Procedure and treatment not carried out because of patient's decision for unspecified reasons; Z82.49 Family history of ischemic heart disease and other diseases of the circulatory system; Z82.61 Family history of arthritis
CPT/HCPCS: 36415; 74177; 80048; 80053; 80307; 81001; 81025; 82607; 83690; 83735; 84439; 84443; 85025; 85027; 85652; 86140; 87045; 87086; 87205; 87493; 93005; 93010; 96360; 96361; 99285; J0515; J0744; J1650; J2930; J3490; J7030; J7120; J7512; S0164

== ENCOUNTER 2017-11-17 23:57 | Emergency (ER) | payer SELFPAY ==
[2017-10-21] MEDS: NORMAL SALINE 1000 ML 1,000 ML IV PRN ×2 (03:00→03:43)
[2017-11-18 02:26] LABS: ABSOLUTE EOSINOPHILS # (AUTO) 0.1 10^3/uL (0.0-0.6); ABSOLUTE LYMPHOCYTES (AUTO) 0.7 10^3/uL (0.5-4.7); ABSOLUTE MONOCYTES (AUTO) 0.8 10^3/uL (0.1-1.4); ABSOLUTE NEUT (AUTO) 4.1 10^3/uL (1.7-8.2); BASOPHILS % (AUTO) 0.4 % (0-2); EOSINOPHILS % (AUTO) 1.4 % (0-6); HEMATOCRIT 38.3 % (36.0-47.0); HEMOGLOBIN 12.6 g/dL (12.0-15.5); LYMPHOCYTES % (AUTO) 12.6 % (13-45); MEAN CORPUSCULAR HEMOGLOBIN 28.2 pg (27.0-33.4); MEAN CORPUSCULAR VOLUME 85 fl (80-97); MONOCYTES % (AUTO) 13.7 % (3-13); PLATELET COUNT 500 10^3/uL (150-450); RED BLOOD COUNT 4.49 10^6/uL (3.72-5.28); RED CELL DISTRIBUTION WIDTH 14.8 % (11.5-14.0); SEGMENTED NEUTROPHILS % (AUTO) 71.9 % (42-78); TOTAL CELLS COUNTED % (AUTO) 100 %; WHITE BLOOD COUNT 5.7 10^3/uL (4.0-10.5)
[2017-11-18 02:36] LABS: APPEARANCE,URINE CLEAR; COLOR,URINE STRAW; GLUCOSE, URINE NEGATIVE (NEGATIVE); KETONES,URINE 100 mg/dL (NEGATIVE); URINE SPECIFIC GRAVITY 1.026
[2017-11-18 02:37] LABS: LEUKOCYTE ESTERASE,URINE TRACE (NEGATIVE); NITRITE,URINE NEGATIVE (NEGATIVE); PROTEIN,URINE 30 mg/dL (NEGATIVE)
[2017-11-18 02:38] LABS: ADD MANUAL MICROSCOPIC YES
[2017-11-18 02:39] LABS: ALANINE AMINOTRANSFERASE 27 U/L (9-52); ALKALINE PHOSPHATASE 65 U/L (38-126); ANION GAP 18 (5-19); ASPARTATE AMINO TRANSFERASE 17 U/L (14-36); BILIRUBIN,DIRECT 0.4 mg/dL (0.0-0.4); BILIRUBIN,TOTAL 0.5 mg/dL (0.2-1.3); BLOOD UREA NITROGEN 11 mg/dL (7-20); CALCIUM 10.7 mg/dL (8.4-10.2); CARBON DIOXIDE 24 mmol/L (22-30); CHLORIDE 99 mmol/L (98-107); GLUCOSE 96 mg/dL (75-110); POTASSIUM 3.9 mmol/L (3.6-5.0); SODIUM 141.1 mmol/L (137-145); TOTAL PROTEIN 8.7 g/dL (6.3-8.2)
[2017-11-18 02:41] LABS: BILIRUBIN,URINE MODERATE (NEGATIVE)
[2017-11-18 02:43] LABS: AMORPHOUS SEDIMENT,UR 2+; BACTERIA,URINE 2+ /HPF
[2017-11-18] MEDS ORDERED: DEXAMETHASONE SOD PHOS INJ 10 MG/1 ML VIAL IV ONE (05:06)
[2017-11-18] MEDS ORDERED: ONDANSETRON ODT 4 MG TAB (6 TAB/ER DISP) PO PRN (05:16)
--- NOTE | 2017-11-18 05:18 | ER Document Report ---
ED General - General Chief Complaint: Abdominal Pain Stated Complaint: ABDOMINAL PAIN Time Seen by Provider: 11/18/17 02:12 TRAVEL OUTSIDE OF THE [place] IN LAST 30 DAYS: No - HPI Patient complains to provider of: Left lower quadrant abdominal pain Notes: Patient coming in for evaluation left lower quadrant abdominal pain. Patient was found to be tachycardic upon initial evaluation. Patient states she is having a lot of diarrhea nonbloody. Patient states that she feels dehydrated. Patient otherwise is lying in stretcher otherwise looks comfortable. Denies fevers chills nausea vomiting. Patient does have a history of ulcerative colitis. Patient was recent admission for a ulcerative colitis flare. Patient states she was unable to follow-up with her doctors and has not taken any of her medications since being discharged from the hospital. - Related Data Allergies/Adverse Reactions: No Known Drug Allergies Allergy (Verified 10/24/17 11:59) Past Medical History - Social History Smoking Status: Unknown if Ever Smoked Chew tobacco use (# tins/day): No Frequency of alcohol use: None Drug Abuse: None Family History: Arthritis, CAD, Hyperlipidemia, Hypertension, Malignancy, Thyroid Disfunction Patient has suicidal ideation: No Patient has homicidal ideation: No - Past Medical History Cardiac Medical History: Denies: Hx Coronary Artery Disease, Hx Heart Attack, Hx Hypertension Pulmonary Medical History: Denies: Hx Asthma, Hx Bronchitis, Hx COPD, Hx Pneumonia Neurological Medical History: Reports: Hx Migraine. Denies: Hx Cerebrovascular Accident, Hx Seizures Renal/ Medical History: Denies: Hx Peritoneal Dialysis GI Medical History: Reports: Hx Crohn's Disease - Not sure if it's Crohn's or ulcerative colitis, Hx Ulcerative Colitis Musculoskeltal Medical History: Denies Hx Arthritis, Reports Hx Musculoskeletal Trauma Psychiatric Medical History: Reports: Hx Depression - Immunizations Immunizations up to date: Yes Hx Diphtheria, Pertussis, Tetanus Vaccination: Yes Review of Systems - Review of Systems Constitutional: No symptoms reported EENT: No symptoms reported Cardiovascular: No symptoms reported Respiratory: No symptoms reported Gastrointestinal: Abdominal pain Genitourinary: No symptoms reported Female Genitourinary: No symptoms reported Musculoskeletal: No symptoms reported Skin: No symptoms reported Hematologic/Lymphatic: No symptoms reported Neurological/Psychological: No symptoms reported -: Yes All other systems reviewed and negative Physical Exam - Vital signs Vitals: Temp Pulse Resp BP Pulse Ox 99.1 F 130 H 20 117/69 98 03/28/18 01:43 11/18/17 01:43 11/18/17 01:43 11/18/17 01:43 11/18/17 01:43 Interpretation: Tachycardic - General General appearance: Appears well, Alert - HEENT Head: Normocephalic, Atraumatic Eyes: Normal Pupils: PERRL - Respiratory Respiratory status: No respiratory distress Chest status: Nontender Breath sounds: Normal Chest palpation: Normal - Cardiovascular Rhythm: Tachycardia Heart sounds: Normal auscultation Murmur: No - Abdominal Inspection: Normal Distension: No distension Bowel sounds: Normal Tenderness: Nontender Organomegaly: No organomegaly - Back Back: Normal, Nontender - Extremities General upper extremity: Normal inspection, Nontender, Normal color, Normal ROM , Normal temperature General lower extremity: Normal inspection, Nontender, Normal color, Normal ROM , Normal temperature, Normal weight bearing. No: Virgil's sign - Neurological Neuro grossly intact: Yes Cognition: Normal Orientation: AAOx4 German Coma Scale Eye Opening: Spontaneous [place] Coma Scale Verbal: Oriented [place] Coma Scale Motor: Obeys Commands German Coma Scale Total: 15 Speech: Normal Motor strength normal: LUE, RUE, LLE, RLE Sensory: Normal - Psychological Associated symptoms: Normal affect, Normal mood - Skin Skin Temperature: Warm Skin Moisture: Dry Skin Color: Normal Course - Re-evaluation Re-evalutation: 11/18/17 05:13 Laboratory studies not show any signs of sepsis lactic acid is normal CBC is normal no a large leukocytosis. Patient also states she has had massive mild diarrhea was unable to give us a stool sample while here in the ER. Patient's tachycardia has improved after IV hydration. At this time reevaluation abdomen reveals a nontender abdomen I do not see any signs of sepsis patient's abdomen examination are consistent with an acute flare. To stay in the ER for further evaluation by our social service worker patient states she has a meeting today otherwise patient looks nontoxic will discharge home offered the patient - Vital Signs Vital signs: Temp Pulse Resp BP Pulse Ox 99.1 F 130 H 20 111/69 97 11/18/17 01:43 11/18/17 01:43 11/18/17 04:01 11/18/17 04:00 11/18/17 04:01 - Laboratory Result Diagrams: 11/18/17 01:50 11/18/17 01:50 Laboratory results interpreted by me: 11/18/17 11/18/17 11/18/17 01:50 01:50 01:50 RDW 14.8 H Plt Count 500 H Lymphocytes % 12.6 L Monocytes % 13.7 H Calcium 10.7 H Total Protein 8.7 H Urine Protein 30 H Urine Ketones 100 H Urine Bilirubin MODERATE H Urine Urobilinogen 2.0 H Ur Leukocyte Esterase TRACE H Discharge - Discharge Clinical Impression: Abdominal pain Qualifiers: Abdominal location: unspecified location Qualified Code(s): R10.9 - Unspecified abdominal pain Condition: Good Disposition: HOME, SELF-CARE Instructions: Abdominal Pain ([facility]) Additional Instructions: Your laboratory studies do not show any significant pathology. Your vital signs have improved since receiving IV fluids. Please follow-up with your support team for further evaluation. Return to the ER if symptoms worsen.
[2017-11-18 07:38] VITALS: BP 105/66
== END 2017-11-18 07:33 | disposition home or self-care (01) ==
LOC: ER 23:57
DX: R10.32 Left lower quadrant pain (principal); R19.7 Diarrhea, unspecified; R00.0 Tachycardia, unspecified; Z87.19 Personal history of other diseases of the digestive system
CPT/HCPCS: 99284; 96374; 36415; 83690; 84703; 85025; 80053; 81001; 83605; J1100